=== PATIENT | female | born 1955 | race Caucasian/White ===

== ENCOUNTER 2017-10-24 09:07 | Emergency (ER) | payer MEDICAID, OTHER ==
[~2017-10-24] VITALS: Ht 165.1 cm; Wt 55.0 kg
[~2017-10-24 09:07] MED LIST: AMLO10TA4; ESOM20CA; IMIP50TA7; LANS30CA52; MECL25TA3; METO5TAB86; SERT25TA; XANAX
[2017-10-24] MEDS ORDERED: KETOROLAC 60MG/2ML VIAL IM ONE (10:45)
[2017-10-24] MEDS ORDERED: KETOROLAC 30MG/ML VIAL IV STA (11:54)
[2017-10-24] MEDS ORDERED: DIPHENHYDRAMINE 50MG/ML VIAL IV ONE (12:00)
[2017-10-24] MEDS ORDERED: IPRATROPIUM BROMIDE (0.02%) 0.5MG/2.5ML NEB HHN STA (12:08)
[2017-10-24] MEDS ORDERED: ALBUTEROL (0.083%) 2.5MG/3ML NEB HHN STA (12:08)
[2017-10-24] MEDS ORDERED: PREDNISONE 20MG TABLET PO STA (12:08)
[2017-10-24] MEDS ORDERED: ONDANSETRON 4MG ODT PO ONE (13:00)
[2017-10-24 13:39] VITALS: BP 150/89
== END 2017-10-24 13:42 | disposition home or self-care (01) ==
LOC: ER 09:22
DX: R05 Cough (principal); R07.89 Other chest pain; R06.02 Shortness of breath; R06.2 Wheezing; I10 Essential (primary) hypertension
CPT/HCPCS: 71045; 93005; 94640; 96372; 96374; 99284; J1200; J1885; J7512; J7611; Q0162

== ENCOUNTER 2018-01-14 08:02 | Emergency (ER) | payer MEDICAID ==
[~2018-01-14] VITALS: Ht 165.1 cm; Wt 70.0 kg
[2018-01-14] MEDS ORDERED: MORPHINE SULFATE 4 MG/ML CPJ (NOT FOR IM USE) IV STA (09:14)
[2018-01-14] MEDS ORDERED: SODIUM CHLORIDE 0.9% 1,000 ML IV ONE (09:14)
[2018-01-14] MEDS ORDERED: ONDANSETRON HCL 4MG/2ML VIAL IV STA (09:14)
[2018-01-14 09:40] LABS: BASOPHILS % 0.7 % (0.0-2.0); EOSINOPHILS % 0.9 % (0.0-5.0); HEMATOCRIT. 35.9 % (36.0-48.0); HEMOGLOBIN. 12.2 g/dL (12.0-16.0); LYMPHOCYTES % 19.2 % (20.0-50.0); MEAN CORPUSCULAR HEMOGLOBIN 28.2 pg (28.0-32.0); MEAN CORPUSCULAR VOLUME 82.8 fL (81.0-99.0); MEAN PLATELET VOLUME 8.5 fl (7.4-10.4); MONOCYTES % 3.9 % (2.0-8.0); NEUTROPHILS % 75.3 % (40.0-76.0); PLATELET 259 x1000/uL (130-400); RED BLOOD CELL COUNT 4.34 mill/uL (4.2-5.4); RED CELL DISTRIBUTION WIDTH 15.2 % (11.6-14.6)
[2018-01-14 09:45] LABS: CHLORIDE 104 mEq/L (98-107)
[2018-01-14 09:46] LABS: PROTHROMBIN TIME 10.3 sec (9.4-11.6)
[2018-01-14] MEDS ORDERED: DIPHENHYDRAMINE 50MG/ML VIAL IV ONE (10:00)
[2018-01-14 10:22] LABS: CLARITY URINE CLEAR (CLEAR); COLOR URINE YELLOW (YELLOW); KETONES URINE 1+ (NEGATIVE); LEUKOCYTE ESTERASE URINE 1+ (NEGATIVE); NITRITE URINE NEGATIVE (NEGATIVE); OCCULT BLOOD URINE NEGATIVE (NEGATIVE); PROTEIN URINE NEGATIVE (NEGATIVE); SPECIFIC GRAVITY URINE 1.009 (1.005-1.030); UROBILINOGEN URINE 0.2 E.U./dL (0.2-1.0)
[2018-01-14 12:02] VITALS: BP 162/59
== END 2018-01-14 12:04 | disposition home or self-care (01) ==
LOC: ER 08:29
DX: K44.9 Diaphragmatic hernia without obstruction or gangrene (principal); N13.30 Unspecified hydronephrosis; I10 Essential (primary) hypertension; Z90.710 Acquired absence of both cervix and uterus; Z90.49 Acquired absence of other specified parts of digestive tract; Z90.89 Acquired absence of other organs
CPT/HCPCS: 36415; 74176; 80053; 81003; 83605; 83690; 85025; 85610; 96361; 96374; 96375; 99285; J1200; J2270; J2405; J7030; Z7610

== ENCOUNTER 2019-03-07 05:20 | Emergency (ER) | payer MEDICAID ==
[~2019-03-07] VITALS: Ht 157.5 cm; Wt 55.0 kg
[2019-03-07] MEDS ORDERED: ONDANSETRON HCL 4MG/2ML INJ IV STA (05:34)
[2019-03-07] MEDS ORDERED: MORPHINE SULFATE 4 MG/ML CPJ (NOT FOR IM USE) IV STA (05:34)
[2019-03-07 05:57] LABS: CHLORIDE 99 mEq/L (98-107)
[2019-03-07 06:00] LABS: BASOPHILS % 1.2 % (0.0-2.0); EOSINOPHILS % 5.1 % (0.0-5.0); HEMATOCRIT. 33.8 % (36.0-48.0); HEMOGLOBIN. 11.3 g/dL (12.0-16.0); LYMPHOCYTES % 44.1 % (20.0-50.0); MEAN CORPUSCULAR HEMOGLOBIN 28.2 pg (28.0-32.0); MEAN CORPUSCULAR VOLUME 84.6 fL (81.0-99.0); MEAN PLATELET VOLUME 8.6 fl (7.4-10.4); MONOCYTES % 8.1 % (2.0-8.0); NEUTROPHILS % 41.5 % (40.0-76.0); PLATELET 185 x1000/uL (130-400); RED BLOOD CELL COUNT 3.99 mill/uL (4.2-5.4); RED CELL DISTRIBUTION WIDTH 16.7 % (11.6-14.6)
[2019-03-07 06:06] LABS: PROTHROMBIN TIME 9.8 sec (9.6-11.0)
[2019-03-07] MEDS ORDERED: DIPHENHYDRAMINE 50MG/ML VIAL IV ONE (06:45)
[2019-03-07 07:15] LABS: CLARITY URINE CLOUDY (CLEAR); COLOR URINE YELLOW (YELLOW); KETONES URINE NEGATIVE (NEGATIVE); LEUKOCYTE ESTERASE URINE TRACE (NEGATIVE); NITRITE URINE NEGATIVE (NEGATIVE); OCCULT BLOOD URINE NEGATIVE (NEGATIVE); PROTEIN URINE NEGATIVE (NEGATIVE); UROBILINOGEN URINE 0.2 E.U./dL (0.2-1.0)
[2019-03-07] MEDS ORDERED: VISCOUS LIDOCAINE 2% 15 ML UDC PO STA (07:35)
[2019-03-07] MEDS ORDERED: MAGNESIUM/ALUMINUM HYDROXIDE/SIMETHICONE 30ML UDC PO STA (07:35)
[2019-03-07] MEDS ORDERED: DICYCLOMINE 10 MG/5 ML ORAL SYR PO STA (07:35)
[2019-03-07 08:56] VITALS: BP 149/74
== END 2019-03-07 08:58 | disposition home or self-care (01) ==
LOC: ER 05:20
DX: K80.20 Calculus of gallbladder without cholecystitis without obstruction (principal); I10 Essential (primary) hypertension; K44.9 Diaphragmatic hernia without obstruction or gangrene; Z90.49 Acquired absence of other specified parts of digestive tract; Z90.89 Acquired absence of other organs; Z88.8 Allergy status to other drugs, medicaments and biological substances; Z87.19 Personal history of other diseases of the digestive system
CPT/HCPCS: 36415; 71045; 74176; 80053; 81003; 83690; 84484; 85025; 85610; 93005; 96374; 96375; 99284; J1200; J2270; J2405; Z7610

== ENCOUNTER 2019-04-01 08:38 | Emergency (ER) | payer MEDICAID ==
[~2019-04-01] VITALS: Ht 162.6 cm; Wt 68.0 kg
[2019-04-01] MEDS ORDERED: KETOROLAC 30MG/ML VIAL IV STA (09:35)
[2019-04-01] MEDS ORDERED: ONDANSETRON HCL 4MG/2ML INJ IV STA (09:35)
[2019-04-01 10:02] LABS: BASOPHILS % 1.2 % (0.0-2.0); EOSINOPHILS % 5.5 % (0.0-5.0); HEMATOCRIT. 33.2 % (36.0-48.0); HEMOGLOBIN. 10.9 g/dL (12.0-16.0); MEAN CORPUSCULAR HEMOGLOBIN 28.2 pg (28.0-32.0); MEAN CORPUSCULAR VOLUME 86.1 fL (81.0-99.0); MEAN PLATELET VOLUME 8.2 fl (7.4-10.4); MONOCYTES % 8.3 % (2.0-8.0); PLATELET 206 x1000/uL (130-400); RED BLOOD CELL COUNT 3.85 mill/uL (4.2-5.4); RED CELL DISTRIBUTION WIDTH 16.5 % (11.6-14.6)
[2019-04-01 10:08] LABS: CHLORIDE 101 mEq/L (98-107)
[2019-04-01 10:09] LABS: INR 0.9; PROTHROMBIN TIME 9.4 sec (9.6-11.0)
[2019-04-01] MEDS ORDERED: DIPHENHYDRAMINE 50MG/ML VIAL IV ONE (10:30)
[2019-04-01 12:15] VITALS: BP 118/80
== END 2019-04-01 12:45 | disposition home or self-care (01) ==
LOC: ER 08:38
DX: R10.9 Unspecified abdominal pain (principal); R11.10 Vomiting, unspecified; R19.7 Diarrhea, unspecified; I10 Essential (primary) hypertension; Z90.49 Acquired absence of other specified parts of digestive tract; Z90.89 Acquired absence of other organs; Z90.710 Acquired absence of both cervix and uterus; Z98.890 Other specified postprocedural states
CPT/HCPCS: 36415; 74176; 80053; 83690; 85025; 85610; 93005; 96374; 96375; 99284; J1200; J1885; J2405

== ENCOUNTER 2019-08-20 18:23 | Emergency (ER) | payer MEDICAID ==
[~2019-08-20] VITALS: Ht 165.1 cm; Wt 60.0 kg
[2019-08-20] MEDS ORDERED: MAGNESIUM/ALUMINUM HYDROXIDE/SIMETHICONE 30ML UDC PO STA (18:48)
[2019-08-20] MEDS ORDERED: METOCLOPRAMIDE HCL 10MG/2ML VIAL IV STA (18:48)
[2019-08-20] MEDS ORDERED: FAMOTIDINE 20MG/2ML VIAL IV STA (18:48)
[2019-08-20] MEDS ORDERED: VISCOUS LIDOCAINE 2% 15 ML UDC PO STA (18:48)
[2019-08-20 19:11] LABS: BASOPHILS % 1.1 % (0.0-2.0); EOSINOPHILS % 4.6 % (0.0-5.0); HEMATOCRIT. 31.9 % (36.0-48.0); HEMOGLOBIN. 10.6 g/dL (12.0-16.0); MEAN CORPUSCULAR HEMOGLOBIN 28.9 pg (28.0-32.0); MEAN CORPUSCULAR VOLUME 86.4 fL (81.0-99.0); MONOCYTES % 5.6 % (2.0-8.0); NEUTROPHILS % 52.7 % (40.0-76.0); PLATELET 229 x1000/uL (130-400); RED BLOOD CELL COUNT 3.69 mill/uL (4.2-5.4); RED CELL DISTRIBUTION WIDTH 14.7 % (11.6-14.6)
[2019-08-20 19:18] LABS: CHLORIDE 108 mEq/L (98-107)
[2019-08-20 20:49] LABS: CLARITY URINE CLOUDY (CLEAR); COLOR URINE YELLOW (YELLOW); KETONES URINE NEGATIVE (NEGATIVE); LEUKOCYTE ESTERASE URINE 3+ (NEGATIVE); NITRITE URINE NEGATIVE (NEGATIVE); OCCULT BLOOD URINE NEGATIVE (NEGATIVE); PROTEIN URINE NEGATIVE (NEGATIVE); SPECIFIC GRAVITY URINE 1.009 (1.005-1.030); UROBILINOGEN URINE 0.2 E.U./dL (0.2-1.0)
[2019-08-20] MEDS ORDERED: GABAPENTIN 300MG CAPSULE PO ONE (21:00)
[2019-08-20] MEDS ORDERED: CEFTRIAXONE 1 G PREMIX 50 ML IV ONE (21:30)
[2019-08-20] MEDS ORDERED: DIPHENHYDRAMINE 50MG/ML VIAL IV ONE (21:45)
[2019-08-21 00:47] VITALS: BP 118/75
== END 2019-08-21 01:51 | disposition home or self-care (01) ==
LOC: ER 18:23
DX: K29.70 Gastritis, unspecified, without bleeding (principal); K21.9 Gastro-esophageal reflux disease without esophagitis; N39.0 Urinary tract infection, site not specified; I10 Essential (primary) hypertension; Z90.710 Acquired absence of both cervix and uterus; Z90.49 Acquired absence of other specified parts of digestive tract
CPT/HCPCS: 36415; 71045; 80053; 81003; 83690; 83880; 84484; 85025; 85610; 93005; 96365; 96375; 99284; J0696; J1200; J2765; J3490

== ENCOUNTER 2019-12-12 12:05 | Emergency (ER) | payer MEDICAID ==
[~2019-12-12] VITALS: Ht 165.1 cm; Wt 73.0 kg
[~2019-12-12 12:05] MED LIST changes: +CLON-457 MT; +PROT20 MT
[2019-12-12] MEDS ORDERED: FAMOTIDINE 20MG/2ML VIAL IV STA (12:21)
[2019-12-12] MEDS ORDERED: ONDANSETRON HCL 4MG/2ML INJ IV STA (12:21)
[2019-12-12] MEDS ORDERED: MORPHINE SULFATE 4 MG/ML CPJ (NOT FOR IM USE) IV ONE (12:30)
[2019-12-12] MEDS ORDERED: DIPHENHYDRAMINE 50MG/ML VIAL IV ONE (12:30)
[2019-12-12 12:49] LABS: BASOPHILS % 1.8 % (0.0-2.0); EOSINOPHILS % 5.1 % (0.0-5.0); HEMATOCRIT. 28.8 % (36.0-48.0); HEMOGLOBIN. 9.3 g/dL (12.0-16.0); MEAN CORPUSCULAR VOLUME 83.2 fL (81.0-99.0); MEAN PLATELET VOLUME 9.2 fl (7.4-10.4); MONOCYTES % 7.5 % (2.0-8.0); NEUTROPHILS % 44.6 % (40.0-76.0); PLATELET 202 x1000/uL (130-400); RED BLOOD CELL COUNT 3.46 mill/uL (4.2-5.4); RED CELL DISTRIBUTION WIDTH 15.3 % (11.6-14.6)
[2019-12-12 12:53] LABS: CHLORIDE 105 mEq/L (98-107)
[2019-12-12 12:55] LABS: INR 0.9; PROTHROMBIN TIME 10.3 sec (9.6-11.0)
[2019-12-12 14:15] VITALS: BP 166/84
== END 2019-12-12 14:16 | disposition home or self-care (01) ==
LOC: ER 12:05
DX: R10.13 Epigastric pain (principal); I10 Essential (primary) hypertension; Z87.19 Personal history of other diseases of the digestive system; Z90.49 Acquired absence of other specified parts of digestive tract; Z90.710 Acquired absence of both cervix and uterus; Z88.6 Allergy status to analgesic agent; Z88.8 Allergy status to other drugs, medicaments and biological substances
CPT/HCPCS: 36415; 80053; 83690; 85025; 85610; 96374; 96375; 99284; J1200; J2270; J2405; J3490

== ENCOUNTER 2020-01-07 11:38 | Emergency (ER) | payer MEDICAID ==
[~2020-01-07] VITALS: Ht 162.6 cm; Wt 53.0 kg
[~2020-01-07 11:38] MED LIST changes: +FERR325T6 MT
[2020-01-07] MEDS ORDERED: MAGNESIUM/ALUMINUM HYDROXIDE/SIMETHICONE 30ML UDC PO STA (12:35)
[2020-01-07] MEDS ORDERED: VISCOUS LIDOCAINE 2% 15 ML UDC PO STA (12:35)
[2020-01-07] MEDS ORDERED: DIPHENHYDRAMINE 50MG/ML VIAL IM ONE (13:15)
[2020-01-07] MEDS ORDERED: METOCLOPRAMIDE HCL 10MG/2ML VIAL IM ONE (13:15)
[2020-01-07] MEDS ORDERED: MORPHINE SULFATE 10 MG/ML CPJ IM ONE (13:30)
[2020-01-07 14:21] VITALS: BP 144/85
[2020-01-07] MEDS ORDERED: SODIUM CHLORIDE 0.9% 1,000 ML IV ONE (14:42)
[2020-01-07 14:47] LABS: BASOPHILS % 1.9 % (0.0-2.0); EOSINOPHILS % 6.3 % (0.0-5.0); HEMATOCRIT. 29.1 % (36.0-48.0); HEMOGLOBIN. 9.5 g/dL (12.0-16.0); LYMPHOCYTES % 52.6 % (20.0-50.0); MEAN CORPUSCULAR HEMOGLOBIN 26.4 pg (28.0-32.0); MEAN CORPUSCULAR VOLUME 80.5 fL (81.0-99.0); MEAN PLATELET VOLUME 9.7 fl (7.4-10.4); MONOCYTES % 7.9 % (2.0-8.0); NEUTROPHILS % 31.3 % (40.0-76.0); PLATELET 186 x1000/uL (130-400); RED BLOOD CELL COUNT 3.61 mill/uL (4.2-5.4); RED CELL DISTRIBUTION WIDTH 15.7 % (11.6-14.6)
[2020-01-07 14:54] LABS: CHLORIDE 107 mEq/L (98-107)
[2020-01-07 15:36] LABS: INR 0.9
[2020-01-07] MEDS ORDERED: DIPHENHYDRAMINE 25MG CAPSULE PO ONE (15:45)
[2020-01-07] MEDS ORDERED: SODIUM CHLORIDE 0.9% 1,000 ML IV SCH (18:46)
[2020-01-07] MEDS ORDERED: ACETAMINOPHEN 325MG TABLET PO PRN (19:00)
[2020-01-07] MEDS ORDERED: ONDANSETRON HCL 4MG/2ML INJ IV PRN (19:00)
[2020-01-07] MEDS ORDERED: PANTOPRAZOLE SODIUM 40 MG/VIAL IV SCH (19:00)
[2020-01-07] MEDS ORDERED: MORPHINE SULFATE 2 MG/ML CPJ (NOT FOR IM USE) IV PRN (19:00)
[2020-01-07] MEDS ORDERED: IPRATROPIUM/ALBUTEROL 0.5-3(2.5)MG/3ML NEB HHN PRN (19:00)
[2020-01-07] MEDS ORDERED: AMLODIPINE 5MG TABLET PO SCH (19:00)
[2020-01-07] MEDS ORDERED: CLONIDINE 0.1MG TABLET PO PRN (19:00)
[2020-01-07] MEDS ORDERED: HYDROCODONE/ACETAMINOPHEN 5/325MG TABLET PO PRN (19:00)
[2020-01-07] MEDS ORDERED: LORAZEPAM 0.5MG TABLET PO PRN (19:00)
[2020-01-08] MEDS ORDERED: FERROUS SULFATE 325MG TABLET PO SCH (09:00)
[2020-01-08] MEDS ORDERED: SERTRALINE HCL 25MG TABLET PO SCH (09:00)
== END 2020-01-07 16:10 | disposition left against medical advice (07) ==
LOC: ER 11:38 → EDBEDREQ 15:56 → EDBEDREQTM 15:56 → ENRESERV 16:07 → CANRESERV 16:07 → CANBEDREQ 16:10 → ER 16:10
DX: R10.13 Epigastric pain (principal); K44.9 Diaphragmatic hernia without obstruction or gangrene; I10 Essential (primary) hypertension; D50.9 Iron deficiency anemia, unspecified; R11.2 Nausea with vomiting, unspecified; F99 Mental disorder, not otherwise specified; Z91.013 Allergy to seafood; Z88.6 Allergy status to analgesic agent; Z91.041 Radiographic dye allergy status; Z88.5 Allergy status to narcotic agent; Z87.19 Personal history of other diseases of the digestive system
CPT/HCPCS: 36415; 71045; 80053; 80320; 83690; 83880; 85025; 85610; 93005; 96372; 99285; J1200; J2270; J2765; J7030; Q0163; G0480

== ENCOUNTER 2020-01-13 04:58 | Emergency (ER) | payer MEDICAID ==
[~2020-01-13] VITALS: Ht 165.1 cm; Wt 64.0 kg
[2020-01-13] MEDS ORDERED: ONDANSETRON HCL 4MG/2ML INJ IV STA (06:29)
[2020-01-13] MEDS ORDERED: MORPHINE SULFATE 4 MG/ML CPJ (NOT FOR IM USE) IV STA (06:29)
[2020-01-13] MEDS ORDERED: SODIUM CHLORIDE 0.9% 1,000 ML IV ONE (06:29)
[2020-01-13] MEDS ORDERED: FAMOTIDINE 20MG/2ML VIAL IV STA (06:29)
[2020-01-13 06:36] LABS: BASOPHILS % 1.4 % (0.0-2.0); EOSINOPHILS % 6.7 % (0.0-5.0); HEMATOCRIT. 29.1 % (36.0-48.0); HEMOGLOBIN. 9.4 g/dL (12.0-16.0); LYMPHOCYTES % 36.9 % (20.0-50.0); MEAN CORPUSCULAR HEMOGLOBIN 26.2 pg (28.0-32.0); MEAN CORPUSCULAR VOLUME 81.1 fL (81.0-99.0); MEAN PLATELET VOLUME 9.5 fl (7.4-10.4); MONOCYTES % 9.3 % (2.0-8.0); NEUTROPHILS % 45.7 % (40.0-76.0); PLATELET 190 x1000/uL (130-400); RED BLOOD CELL COUNT 3.58 mill/uL (4.2-5.4); RED CELL DISTRIBUTION WIDTH 15.9 % (11.6-14.6)
[2020-01-13 06:46] LABS: INR 0.9
[2020-01-13 06:48] LABS: CHLORIDE 106 mEq/L (98-107)
[2020-01-13 07:42] LABS: CLARITY URINE CLEAR (CLEAR); COLOR URINE YELLOW (YELLOW); KETONES URINE NEGATIVE (NEGATIVE); LEUKOCYTE ESTERASE URINE 1+ (NEGATIVE); NITRITE URINE NEGATIVE (NEGATIVE); OCCULT BLOOD URINE NEGATIVE (NEGATIVE); PH URINE 8.5 (4.5-8.0); PROTEIN URINE NEGATIVE (NEGATIVE); SPECIFIC GRAVITY URINE 1.004 (1.005-1.030); UROBILINOGEN URINE 0.2 E.U./dL (0.2-1.0)
[2020-01-13 08:31] LABS: *AMPHETAMINES SCREEN URINE NEGATIVE (NEGATIVE); *BARBITURATES SCREEN URINE NEGATIVE (NEGATIVE); *BENZODIAZEPINES SCREEN URINE PRESUMTIVE POSITIVE (NEGATIVE)
[2020-01-13 08:32] LABS: *COCAINE SCREEN URINE NEGATIVE (NEGATIVE); CANNABINOID URINE SCREEN PRESUMTIVE POSITIVE (NEGATIVE); METHADONE URINE SCREEN NEGATIVE (NEGATIVE); OPIATES URINE SCREEN NEGATIVE (NEGATIVE); PHENCYCLIDINE URINE SCREEN NEGATIVE (NEGATIVE)
[2020-01-13 08:46] VITALS: BP 132/80
== END 2020-01-13 09:20 | disposition home or self-care (01) ==
LOC: ER 04:58
DX: N39.0 Urinary tract infection, site not specified (principal); R11.10 Vomiting, unspecified; D64.9 Anemia, unspecified; I10 Essential (primary) hypertension; Z91.041 Radiographic dye allergy status; Z88.6 Allergy status to analgesic agent; Z91.013 Allergy to seafood; Z88.1 Allergy status to other antibiotic agents; Z79.899 Other long term (current) drug therapy; Z98.890 Other specified postprocedural states
CPT/HCPCS: 36415; 80053; 80305; 80320; 81003; 83690; 84484; 85025; 85610; 93005; 96361; 96374; 96375; 99284; J2270; J2405; J3490; J7030; G0480

== ENCOUNTER 2020-02-05 22:13 | Emergency (ER) | payer MEDICAID ==
[~2020-02-05] VITALS: Ht 167.6 cm; Wt 63.0 kg
[2020-02-05] MEDS ORDERED: VISCOUS LIDOCAINE 2% 15 ML UDC PO STA (23:13)
[2020-02-05] MEDS ORDERED: MAGNESIUM/ALUMINUM HYDROXIDE/SIMETHICONE 30ML UDC PO STA (23:13)
[2020-02-05] MEDS ORDERED: ONDANSETRON HCL 4MG/2ML INJ IV STA (23:13)
[2020-02-05 23:33] LABS: BASOPHILS % 1.7 % (0.0-2.0); HEMATOCRIT. 29.5 % (36.0-48.0); HEMOGLOBIN. 9.7 g/dL (12.0-16.0); LYMPHOCYTES % 40.3 % (20.0-50.0); MEAN CORPUSCULAR HEMOGLOBIN 25.9 pg (28.0-32.0); MEAN CORPUSCULAR VOLUME 78.6 fL (81.0-99.0); MEAN PLATELET VOLUME 9.5 fl (7.4-10.4); MONOCYTES % 8.2 % (2.0-8.0); NEUTROPHILS % 44.8 % (40.0-76.0); PLATELET 194 x1000/uL (130-400); RED BLOOD CELL COUNT 3.75 mill/uL (4.2-5.4); RED CELL DISTRIBUTION WIDTH 16.3 % (11.6-14.6)
[2020-02-05 23:36] VITALS: BP 105/61
[2020-02-05 23:41] LABS: INR 0.9; PROTHROMBIN TIME 9.7 sec (9.6-11.0)
[2020-02-05 23:43] LABS: CHLORIDE 109 mEq/L (98-107)
[2020-02-05 23:51] LABS: ETHANOL BLOOD < 10 mg/dL
[2020-02-06] MEDS ORDERED: ACETAMINOPHEN 500MG TABLET PO ONE (00:45)
== END 2020-02-06 01:35 | disposition home or self-care (01) ==
LOC: ER 22:13
DX: R10.13 Epigastric pain (principal); G89.29 Other chronic pain; K80.80 Other cholelithiasis without obstruction; K44.9 Diaphragmatic hernia without obstruction or gangrene; I10 Essential (primary) hypertension; Z76.5 Malingerer [conscious simulation]; Z87.19 Personal history of other diseases of the digestive system; Z88.8 Allergy status to other drugs, medicaments and biological substances; Z91.041 Radiographic dye allergy status; Z91.013 Allergy to seafood
CPT/HCPCS: 36415; 74176; 76705; 80053; 80320; 83690; 84484; 85025; 85610; 96374; 99285; J2405; G0480

== ENCOUNTER 2020-04-02 09:41 | Emergency (ER) | payer MEDICAID ==
[~2020-04-02] VITALS: Ht 165.1 cm; Wt 68.0 kg
[2020-04-02] MEDS ORDERED: ONDANSETRON HCL 4MG/2ML INJ IV STA (10:06)
[2020-04-02] MEDS ORDERED: SODIUM CHLORIDE 0.9% 1,000 ML IV ONE (10:06)
[2020-04-02] MEDS ORDERED: FAMOTIDINE 20MG/2ML VIAL IV STA (10:06)
[2020-04-02] MEDS ORDERED: DIPHENHYDRAMINE 50MG/ML VIAL IV ONE ×2 (10:15→11:45)
[2020-04-02] MEDS ORDERED: METHYLPREDNISOLONE SOD SUCC 125 MG/2 ML VIAL IV ONE (10:15)
[2020-04-02 12:45] LABS: *AMPHETAMINES SCREEN URINE NEGATIVE (NEGATIVE); *BARBITURATES SCREEN URINE NEGATIVE (NEGATIVE); *BENZODIAZEPINES SCREEN URINE PRESUMTIVE POSITIVE (NEGATIVE); *COCAINE SCREEN URINE NEGATIVE (NEGATIVE); METHADONE URINE SCREEN NEGATIVE (NEGATIVE); OPIATES URINE SCREEN NEGATIVE (NEGATIVE)
[2020-04-02 12:46] LABS: CANNABINOID URINE SCREEN PRESUMTIVE POSITIVE (NEGATIVE); PHENCYCLIDINE URINE SCREEN NEGATIVE (NEGATIVE)
[2020-04-02 12:58] VITALS: BP 136/87
== END 2020-04-02 13:09 | disposition home or self-care (01) ==
LOC: ER 09:41
DX: T78.1XXA Other adverse food reactions, not elsewhere classified, initial encounter (principal); T78.49XA Other allergy, initial encounter; F12.10 Cannabis abuse, uncomplicated; F13.10 Sedative, hypnotic or anxiolytic abuse, uncomplicated; Z88.8 Allergy status to other drugs, medicaments and biological substances; Z91.041 Radiographic dye allergy status; Z91.013 Allergy to seafood; Z90.49 Acquired absence of other specified parts of digestive tract; X58.XXXA Exposure to other specified factors, initial encounter
CPT/HCPCS: 80305; 96361; 96374; 96375; 96376; 99284; J1200; J2405; J2930; J3490; J7030

== ENCOUNTER 2020-06-07 04:31 | Emergency (ER) | payer MEDICAID ==
[~2020-06-07] VITALS: Ht 162.6 cm; Wt 64.0 kg
[2020-06-07] MEDS ORDERED: SODIUM CHLORIDE 0.9% 1,000 ML IV ONE (05:09)
[2020-06-07] MEDS ORDERED: ONDANSETRON HCL 4MG/2ML INJ IV STA (05:09)
[2020-06-07] MEDS ORDERED: FAMOTIDINE 20MG/2ML VIAL IV STA (05:09)
[2020-06-07] MEDS ORDERED: HYDROXYZINE 25MG TABLET PO ONE (05:15)
[2020-06-07 05:19] LABS: BASOPHILS % 3.2 % (0.0-2.0); HEMATOCRIT. 32.2 % (36.0-48.0); HEMOGLOBIN. 10.4 g/dL (12.0-16.0); LYMPHOCYTES % 47.3 % (20.0-50.0); MEAN CORPUSCULAR VOLUME 80.3 fL (81.0-99.0); MEAN PLATELET VOLUME 9.2 fl (7.4-10.4); MONOCYTES % 6.8 % (2.0-8.0); NEUTROPHILS % 34.7 % (40.0-76.0); PLATELET 227 x1000/uL (130-400); RED CELL DISTRIBUTION WIDTH 17.1 % (11.6-14.6)
[2020-06-07 05:22] LABS: CHLORIDE 107 mEq/L (98-107)
[2020-06-07 06:06] VITALS: BP 123/54
== END 2020-06-07 06:10 | disposition home or self-care (01) ==
LOC: ER 04:31
DX: T61.781A Other shellfish poisoning, accidental (unintentional), initial encounter (principal); Y92.9 Unspecified place or not applicable; R11.2 Nausea with vomiting, unspecified; R19.7 Diarrhea, unspecified; I51.9 Heart disease, unspecified; Z88.6 Allergy status to analgesic agent; Z91.013 Allergy to seafood; Z91.041 Radiographic dye allergy status
CPT/HCPCS: 36415; 80053; 83690; 85025; 93005; 96361; 96374; 96375; 99284; J2405; J3490; J7030

== ENCOUNTER 2020-10-05 15:54 | Emergency (ER) | payer MEDICAID ==
[~2020-10-05] VITALS: Ht 162.6 cm; Wt 60.0 kg
[2020-10-05] MEDS ORDERED: HYDROCODONE/ACETAMINOPHEN 5/325MG TABLET PO PRN (17:30)
[2020-10-05 17:57] LABS: BASOPHILS % 1.6 % (0.0-2.0); EOSINOPHILS % 5.1 % (0.0-5.0); HEMATOCRIT. 26.8 % (36.0-48.0); HEMOGLOBIN. 8.8 g/dL (12.0-16.0); LYMPHOCYTES % 47.4 % (20.0-50.0); MEAN CORPUSCULAR HEMOGLOBIN 25.9 pg (28.0-32.0); MEAN CORPUSCULAR VOLUME 78.9 fL (81.0-99.0); MEAN PLATELET VOLUME 8.3 fl (7.4-10.4); MONOCYTES % 7.6 % (2.0-8.0); NEUTROPHILS % 38.3 % (40.0-76.0); PLATELET 209 x1000/uL (130-400); RED CELL DISTRIBUTION WIDTH 16.9 % (11.6-14.6)
[2020-10-05 18:05] LABS: CHLORIDE 91 mEq/L (98-107)
[2020-10-05 18:33] LABS: CLARITY URINE CLOUDY (CLEAR); COLOR URINE YELLOW (YELLOW); KETONES URINE NEGATIVE (NEGATIVE); LEUKOCYTE ESTERASE URINE 3+ (NEGATIVE); NITRITE URINE NEGATIVE (NEGATIVE); OCCULT BLOOD URINE NEGATIVE (NEGATIVE); PROTEIN URINE NEGATIVE (NEGATIVE); UROBILINOGEN URINE 0.2 E.U./dL (0.2-1.0)
[2020-10-05] MEDS ORDERED: HYDROCODONE/ACETAMINOPHEN 5/325MG TABLET PO ONE (21:00)
[2020-10-05 22:18] VITALS: BP 125/81
== END 2020-10-05 22:21 | disposition home or self-care (01) ==
LOC: ER 15:54
DX: E87.1 Hypo-osmolality and hyponatremia (principal); M79.601 Pain in right arm; Z91.041 Radiographic dye allergy status; Z79.899 Other long term (current) drug therapy; Z88.6 Allergy status to analgesic agent; Z91.013 Allergy to seafood; Z98.890 Other specified postprocedural states
CPT/HCPCS: 36415; 71045; 73030; 73060; 76881; 80048; 80076; 81003; 84484; 85025; 99284

== ENCOUNTER 2020-11-18 09:18 | Emergency (ER) | payer MEDICAID ==
[~2020-11-18] VITALS: Ht 157.5 cm; Wt 58.0 kg
[2020-11-18] MEDS ORDERED: ONDANSETRON HCL 4MG/2ML INJ IM STA (10:10)
[2020-11-18] MEDS ORDERED: HYDROCODONE/ACETAMINOPHEN 5/325MG TABLET PO STA ×2 (10:10→11:39)
[2020-11-18 10:50] VITALS: BP 136/66
[2020-11-18 11:00] LABS: BASOPHILS % 2.3 % (0.0-2.0); EOSINOPHILS % 6.6 % (0.0-5.0); HEMATOCRIT. 28.2 % (36.0-48.0); HEMOGLOBIN. 9.3 g/dL (12.0-16.0); LYMPHOCYTES % 56.4 % (20.0-50.0); MEAN CORPUSCULAR HEMOGLOBIN 25.5 pg (28.0-32.0); MEAN CORPUSCULAR VOLUME 77.7 fL (81.0-99.0); MEAN PLATELET VOLUME 8.7 fl (7.4-10.4); MONOCYTES % 7.1 % (2.0-8.0); NEUTROPHILS % 27.6 % (40.0-76.0); PLATELET 218 x1000/uL (130-400); RED BLOOD CELL COUNT 3.63 mill/uL (4.2-5.4); RED CELL DISTRIBUTION WIDTH 15.9 % (11.6-14.6)
[2020-11-18 11:04] LABS: CHLORIDE 101 mEq/L (98-107)
[2020-11-18] MEDS ORDERED: HYDR-4346 PO ×2 (12:52→13:14)
[2020-11-18] MEDS ORDERED: ONDA4TAB5 PO ×2 (13:01→13:14)
[2020-11-19] MEDS ORDERED: HYDR-4346 PO (10:44)
[2020-11-19] MEDS ORDERED: ONDA4TAB5 PO (10:44)
== END 2020-11-18 13:35 | disposition home or self-care (01) ==
LOC: ER 09:24
DX: R22.31 Localized swelling, mass and lump, right upper limb (principal); M79.601 Pain in right arm; D64.9 Anemia, unspecified; Z79.899 Other long term (current) drug therapy
CPT/HCPCS: 36415; 80048; 82962; 85025; 96372; 99283; J2405

== ENCOUNTER 2020-11-19 10:08 | Emergency (ER) | payer MEDICAID, OTHER ==
[~2020-11-19] VITALS: Ht 162.6 cm; Wt 63.6 kg
[~2020-11-19 10:08] MED LIST changes: +HYDR-4346 PO; +ONDA4TAB5 PO
[2020-11-19] MEDS ORDERED: ONDA4TAB5 PO (10:44)
[2020-11-19] MEDS ORDERED: HYDR-4346 PO (10:44)
[2020-11-19] MEDS ORDERED: ONDANSETRON 4MG ODT PO ONE (10:45)
[2020-11-19] MEDS ORDERED: HYDROCODONE/ACETAMINOPHEN 5/325MG TABLET PO ONE (10:45)
[2020-11-19 11:08] VITALS: BP 112/78
== END 2020-11-19 11:08 | disposition home or self-care (01) ==
LOC: ER 10:08
DX: R22.31 Localized swelling, mass and lump, right upper limb (principal); I10 Essential (primary) hypertension
CPT/HCPCS: 99283; Q0162

== ENCOUNTER 2020-11-22 15:21 | Emergency (ER) | payer OTHER ==
[~2020-11-22] VITALS: Ht 162.6 cm; Wt 65.0 kg
[2020-11-22 16:30] VITALS: BP 135/71
[2020-11-22] MEDS ORDERED: ONDANSETRON 4MG ODT PO ONE (16:30)
[2020-11-22] MEDS ORDERED: HYDROCODONE/APAP 7.5/325MG 1 TAB TABLET PO ONE (16:30)
== END 2020-11-22 18:34 | disposition home or self-care (01) ==
LOC: ER 15:21
DX: M79.601 Pain in right arm (principal); I10 Essential (primary) hypertension
CPT/HCPCS: 73060; 99283; Q0162; Z7610

== ENCOUNTER 2021-02-10 10:06 | Emergency (ER) | payer MEDICAID, OTHER ==
[~2021-02-10] VITALS: Ht 165.1 cm; Wt 66.0 kg
[2021-02-10] MEDS ORDERED: ACETAMINOPHEN 325MG TABLET PO ONE (10:30)
[2021-02-10] MEDS ORDERED: TRAMADOL 50MG TABLET PO ONE (10:30)
[2021-02-10 11:23] LABS: BASOPHILS % 0.3 % (0.0-2.0); EOSINOPHILS % 6.2 % (0.0-5.0); HEMATOCRIT. 30.6 % (36.0-48.0); HEMOGLOBIN. 9.7 g/dL (12.0-16.0); LYMPHOCYTES % 49.8 % (20.0-50.0); MEAN CORPUSCULAR HEMOGLOBIN 25.4 pg (28.0-32.0); MEAN PLATELET VOLUME 8.8 fl (7.4-10.4); NEUTROPHILS % 34.7 % (40.0-76.0); PLATELET 215 x1000/uL (130-400); RED BLOOD CELL COUNT 3.83 mill/uL (4.2-5.4); RED CELL DISTRIBUTION WIDTH 17.7 % (11.6-14.6)
[2021-02-10 11:27] LABS: CHLORIDE 100 mEq/L (98-107)
[2021-02-10 11:40] LABS: CREATINE KINASE 89 IU/L (26-192)
[2021-02-10] MEDS ORDERED: ONDANSETRON 4MG ODT PO ONE (11:45)
[2021-02-10 13:08] VITALS: BP 138/88
== END 2021-02-10 13:09 | disposition home or self-care (01) ==
LOC: ER 10:06
DX: M79.605 Pain in left leg (principal); M79.604 Pain in right leg; I10 Essential (primary) hypertension; Z79.899 Other long term (current) drug therapy
CPT/HCPCS: 36415; 80048; 82550; 85025; 99284; Q0162

== ENCOUNTER 2021-05-06 13:51 | Emergency (ER) | payer OTHER ==
[~2021-05-06] VITALS: Ht 162.6 cm; Wt 62.0 kg
[2021-05-06] MEDS ORDERED: MORPHINE SULFATE 4 MG/ML CPJ (NOT FOR IM USE) IV STA (15:12)
[2021-05-06] MEDS ORDERED: VISCOUS LIDOCAINE 2% 15 ML UDC PO STA (15:12)
[2021-05-06] MEDS ORDERED: MAGNESIUM/ALUMINUM HYDROXIDE/SIMETHICONE 30ML UDC PO STA (15:12)
[2021-05-06] MEDS ORDERED: PANTOPRAZOLE SODIUM 40 MG/VIAL IV STA (15:12)
[2021-05-06] MEDS ORDERED: ONDANSETRON HCL 4MG/2ML INJ IV ONE (15:15)
[2021-05-06] MEDS ORDERED: SODIUM CHLORIDE 0.9% 1,000 ML IV ONE (15:15)
[2021-05-06 15:46] LABS: EOSINOPHILS % 5.2 % (0.0-5.0); HEMOGLOBIN. 8.3 g/dL (12.0-16.0); LYMPHOCYTES % 34.3 % (20.0-50.0); MEAN CORPUSCULAR HEMOGLOBIN 24.7 pg (28.0-32.0); MEAN CORPUSCULAR VOLUME 74.6 fL (81.0-99.0); MEAN PLATELET VOLUME 9.2 fl (7.4-10.4); NEUTROPHILS % 50.5 % (40.0-76.0); PLATELET 202 x1000/uL (130-400); RED BLOOD CELL COUNT 3.35 mill/uL (4.2-5.4); RED CELL DISTRIBUTION WIDTH 17.6 % (11.6-14.6)
[2021-05-06 15:53] LABS: PROTHROMBIN TIME 10.5 sec (9.6-11.0)
[2021-05-06 15:54] LABS: CHLORIDE 106 mEq/L (98-107)
[2021-05-06 15:58] LABS: ETHANOL BLOOD < 10 mg/dL
[2021-05-06] MEDS ORDERED: DIPHENHYDRAMINE 25MG CAPSULE PO NR (16:00)
[2021-05-06] MEDS ORDERED: DIPHENHYDRAMINE 25MG CAPSULE PO ONE (16:00)
[2021-05-06 16:27] VITALS: BP 127/80
== END 2021-05-06 16:29 | disposition left against medical advice (07) ==
LOC: ER 13:51
DX: R10.13 Epigastric pain (principal); Z88.5 Allergy status to narcotic agent; K21.9 Gastro-esophageal reflux disease without esophagitis; I10 Essential (primary) hypertension; Z87.19 Personal history of other diseases of the digestive system; Z90.49 Acquired absence of other specified parts of digestive tract; Z90.710 Acquired absence of both cervix and uterus
CPT/HCPCS: 36415; 80053; 80320; 83690; 85025; 85610; 93005; 96361; 96374; 96375; 99284; C9113; J2270; J2405; J7030; G0480

== ENCOUNTER 2021-06-13 23:34 | Emergency (ER) | payer MEDICARE, OTHER ==
[~2021-06-13] VITALS: Ht 160 cm; Wt 61.0 kg
[2021-06-14] MEDS ORDERED: ONDANSETRON HCL 4MG/2ML INJ IV STA (02:30)
[2021-06-14] MEDS ORDERED: HYDROCODONE/ACETAMINOPHEN 5/325MG TABLET PO STA (02:30)
[2021-06-14] MEDS ORDERED: SODIUM CHLORIDE 0.9% 1,000 ML IV ONE (02:30)
[2021-06-14 03:09] LABS: BASOPHILS % 2.5 % (0.0-2.0); EOSINOPHILS % 8.2 % (0.0-5.0); HEMOGLOBIN. 10.1 g/dL (12.0-16.0); LYMPHOCYTES % 41.4 % (20.0-50.0); MEAN CORPUSCULAR HEMOGLOBIN 25.4 pg (28.0-32.0); MEAN CORPUSCULAR VOLUME 78.1 fL (81.0-99.0); MEAN PLATELET VOLUME 7.9 fl (7.4-10.4); MONOCYTES % 7.7 % (2.0-8.0); NEUTROPHILS % 40.2 % (40.0-76.0); PLATELET 322 x1000/uL (130-400); RED BLOOD CELL COUNT 3.97 mill/uL (4.2-5.4); RED CELL DISTRIBUTION WIDTH 18.7 % (11.6-14.6)
[2021-06-14 03:14] LABS: CHLORIDE 100 mEq/L (98-107)
[2021-06-14 03:17] LABS: INR 0.9; PROTHROMBIN TIME 9.8 sec (9.6-11.0)
[2021-06-14] MEDS ORDERED: KETOROLAC 30MG/ML VIAL IV STA (03:36)
[2021-06-14 04:58] LABS: CLARITY URINE CLEAR (CLEAR); COLOR URINE YELLOW (YELLOW); KETONES URINE NEGATIVE (NEGATIVE); LEUKOCYTE ESTERASE URINE 1+ (NEGATIVE); NITRITE URINE NEGATIVE (NEGATIVE); OCCULT BLOOD URINE NEGATIVE (NEGATIVE); PH URINE 6.5 (4.5-8.0); PROTEIN URINE NEGATIVE (NEGATIVE); SPECIFIC GRAVITY URINE 1.006 (1.005-1.030); UROBILINOGEN URINE 0.2 E.U./dL (0.2-1.0)
[2021-06-14] MEDS ORDERED: DIPHENHYDRAMINE 50MG/ML VIAL IV ONE (05:00)
[2021-06-14] MEDS ORDERED: IBUP-2029 PO (05:57)
[2021-06-14] MEDS ORDERED: ONDA4TAB5 MT (05:57)
[2021-06-14] MEDS ORDERED: HYDR-4001 PO (05:57)
[2021-06-14] MEDS ORDERED: POTA20TA82 PO (06:02)
[2021-06-14 06:16] VITALS: BP 132/44
== END 2021-06-14 06:21 | disposition home or self-care (01) ==
LOC: ER 23:34
DX: M79.601 Pain in right arm (principal); R22.31 Localized swelling, mass and lump, right upper limb; E87.6 Hypokalemia; R11.10 Vomiting, unspecified; R74.8 Abnormal levels of other serum enzymes; K21.9 Gastro-esophageal reflux disease without esophagitis; I10 Essential (primary) hypertension; Z98.890 Other specified postprocedural states
CPT/HCPCS: 36415; 80053; 81003; 83690; 85025; 85610; 96361; 96374; 96375; 99284; J1200; J1885; J2405; J7030

== ENCOUNTER 2021-08-09 11:26 | Emergency (ER) | payer MEDICARE, OTHER ==
[~2021-08-09] VITALS: Ht 167.6 cm; Wt 75.0 kg
[~2021-08-09 11:26] MED LIST changes: +HYDR-4001 PO; +IBUP-2029 PO; +ONDA4TAB5 MT; +POTA20TA82 PO
[2021-08-09 12:36] LABS: BASOPHILS % 0.8 % (0.0-2.0); EOSINOPHILS % 4.1 % (0.0-5.0); HEMATOCRIT. 29.8 % (36.0-48.0); HEMOGLOBIN. 9.6 g/dL (12.0-16.0); LYMPHOCYTES % 19.6 % (20.0-50.0); MEAN CORPUSCULAR VOLUME 80.7 fL (81.0-99.0); MEAN PLATELET VOLUME 8.9 fl (7.4-10.4); MONOCYTES % 6.8 % (2.0-8.0); NEUTROPHILS % 68.7 % (40.0-76.0); PLATELET 219 x1000/uL (130-400); RED BLOOD CELL COUNT 3.69 mill/uL (4.2-5.4); RED CELL DISTRIBUTION WIDTH 18.5 % (11.6-14.6)
[2021-08-09 12:46] LABS: CHLORIDE 100 mEq/L (98-107)
[2021-08-09 14:02] LABS: CLARITY URINE TURBID (CLEAR); COLOR URINE YELLOW (YELLOW); KETONES URINE NEGATIVE (NEGATIVE); LEUKOCYTE ESTERASE URINE 3+ (NEGATIVE); NITRITE URINE NEGATIVE (NEGATIVE); OCCULT BLOOD URINE TRACE (NEGATIVE); PROTEIN URINE NEGATIVE (NEGATIVE); UROBILINOGEN URINE 0.2 E.U./dL (0.2-1.0)
[2021-08-09 14:19] LABS: *AMPHETAMINES SCREEN URINE NEGATIVE (NEGATIVE); *BARBITURATES SCREEN URINE NEGATIVE (NEGATIVE); *BENZODIAZEPINES SCREEN URINE PRESUMTIVE POSITIVE (NEGATIVE); *COCAINE SCREEN URINE NEGATIVE (NEGATIVE); OPIATES URINE SCREEN PRESUMTIVE POSITIVE (NEGATIVE)
[2021-08-09 14:20] LABS: CANNABINOID URINE SCREEN PRESUMTIVE POSITIVE (NEGATIVE); METHADONE URINE SCREEN NEGATIVE (NEGATIVE); PHENCYCLIDINE URINE SCREEN NEGATIVE (NEGATIVE)
[2021-08-09] MEDS ORDERED: MORPHINE SULFATE 2 MG/ML CPJ (NOT FOR IM USE) IV ONE (14:30)
[2021-08-09] MEDS ORDERED: SULFAMETHOXAZOLE/TRIMETHOPRIM 800/160MG TABLET PO ONE (16:00)
[2021-08-09] MEDS ORDERED: DIPHENHYDRAMINE 25MG CAPSULE PO ONE (17:15)
[2021-08-09 17:57] VITALS: BP 105/55
== END 2021-08-09 18:18 | disposition home or self-care (01) ==
LOC: ER 11:26
DX: J98.11 Atelectasis (principal); I10 Essential (primary) hypertension; Z79.899 Other long term (current) drug therapy; Z98.890 Other specified postprocedural states; Z90.49 Acquired absence of other specified parts of digestive tract
CPT/HCPCS: 36415; 71045; 72100; 80053; 80305; 81003; 83880; 84484; 85025; 87086; 93005; 96374; 99285; C1893; J2270

== ENCOUNTER 2022-01-15 08:20 | Emergency (ER) | payer MEDICARE, OTHER ==
[~2022-01-15] VITALS: Ht 162.6 cm; Wt 55.0 kg
[2022-01-15] MEDS ORDERED: TRAMADOL 50MG TABLET PO ONE (09:15)
[2022-01-15 10:54] VITALS: BP 128/74
== END 2022-01-15 10:55 | disposition home or self-care (01) ==
LOC: ER 08:20
DX: M25.562 Pain in left knee (principal); M17.12 Unilateral primary osteoarthritis, left knee; K21.9 Gastro-esophageal reflux disease without esophagitis; I10 Essential (primary) hypertension; Z90.710 Acquired absence of both cervix and uterus; Z98.890 Other specified postprocedural states; Z87.440 Personal history of urinary (tract) infections
CPT/HCPCS: 73562; 99283

== ENCOUNTER 2022-02-08 10:49 | Emergency (ER) | payer MEDICARE, OTHER ==
[~2022-02-08] VITALS: Ht 162.6 cm; Wt 68.0 kg
[2022-02-08] MEDS ORDERED: T3 PO ×3 (11:15→11:34)
[2022-02-08] MEDS ORDERED: ACETAMINOPHEN WITH CODEINE 300/30MG TABLET PO ONE (11:15)
[2022-02-08 11:30] VITALS: BP 128/72
[2022-02-08] MEDS ORDERED: ONDA4TAB5 MT (11:35)
== END 2022-02-08 11:40 | disposition home or self-care (01) ==
LOC: ER 10:49
DX: S89.81XA Other specified injuries of right lower leg, initial encounter (principal); M23.51 Chronic instability of knee, right knee; M25.561 Pain in right knee; G89.29 Other chronic pain; I10 Essential (primary) hypertension; K21.9 Gastro-esophageal reflux disease without esophagitis; Y08.89XA Assault by other specified means, initial encounter; Y93.89 Activity, other specified; Y92.9 Unspecified place or not applicable; Z90.710 Acquired absence of both cervix and uterus; Z98.890 Other specified postprocedural states
CPT/HCPCS: 99283

== ENCOUNTER 2022-02-22 09:43 | Emergency (ER) | payer MEDICARE, OTHER ==
[~2022-02-22] VITALS: Ht 154.9 cm; Wt 63.0 kg
[~2022-02-22 09:43] MED LIST changes: +POTA-205 PO; -POTA20TA82 PO; +T3 PO
[2022-02-22 11:59] LABS: CHLORIDE 102 mEq/L (98-107)
[2022-02-22] MEDS ORDERED: ONDANSETRON HCL 4MG/2ML INJ IV ONE (12:15)
[2022-02-22] MEDS ORDERED: MORPHINE SULFATE 4 MG/ML CPJ (NOT FOR IM USE) IV ONE (12:15)
[2022-02-22] MEDS ORDERED: POTASSIUM CHLORIDE 20MEQ TABLET SR PO NR (12:15)
[2022-02-22] MEDS ORDERED: DIPHENHYDRAMINE 50MG/ML VIAL IV ONE (12:45)
[2022-02-22 14:13] LABS: BASOPHILS % 1.3 % (0.0-2.0); EOSINOPHILS % 5.4 % (0.0-5.0); HEMATOCRIT. 27.2 % (36.0-48.0); HEMOGLOBIN. 8.8 g/dL (12.0-16.0); LYMPHOCYTES % 42.8 % (20.0-50.0); MEAN CORPUSCULAR HEMOGLOBIN 24.4 pg (28.0-32.0); MEAN CORPUSCULAR VOLUME 75.7 fL (81.0-99.0); MEAN PLATELET VOLUME 7.8 fl (7.4-10.4); NEUTROPHILS % 41.5 % (40.0-76.0); PLATELET 288 x1000/uL (130-400); RED CELL DISTRIBUTION WIDTH 16.4 % (11.6-14.6)
[2022-02-22 14:57] LABS: CLARITY URINE CLEAR (CLEAR); COLOR URINE YELLOW (YELLOW); KETONES URINE NEGATIVE (NEGATIVE); LEUKOCYTE ESTERASE URINE NEGATIVE (NEGATIVE); NITRITE URINE NEGATIVE (NEGATIVE); OCCULT BLOOD URINE NEGATIVE (NEGATIVE); PROTEIN URINE NEGATIVE (NEGATIVE); SPECIFIC GRAVITY URINE 1.005 (1.005-1.030); UROBILINOGEN URINE 0.2 E.U./dL (0.2-1.0)
[2022-02-22 15:54] VITALS: BP 112/68
== END 2022-02-22 15:55 | disposition home or self-care (01) ==
LOC: ER 09:43
DX: R51.9 Headache, unspecified (principal); M54.2 Cervicalgia; K21.9 Gastro-esophageal reflux disease without esophagitis; I10 Essential (primary) hypertension; Z87.440 Personal history of urinary (tract) infections; Z90.710 Acquired absence of both cervix and uterus; Z98.890 Other specified postprocedural states
CPT/HCPCS: 36415; 70450; 71045; 72125; 80053; 81003; 84484; 85025; 93005; 96374; 96375; 99285; J1200; J2270; J2405

== ENCOUNTER 2022-03-12 09:02 | Emergency (ER) | payer MEDICARE, OTHER ==
[~2022-03-12] VITALS: Ht 165.1 cm; Wt 78.0 kg
[2022-03-12] MEDS ORDERED: EPINEPHRINE 1:1000 1 MG/ML AMP IM ONE (10:00)
[2022-03-12] MEDS ORDERED: ASPIRIN 81MG TABLET PO ONE (10:00)
[2022-03-12] MEDS ORDERED: FAMOTIDINE 20MG/2ML VIAL IV ONE (10:00)
[2022-03-12] MEDS ORDERED: DIPHENHYDRAMINE 50MG/ML VIAL IV ONE (10:00)
[2022-03-12] MEDS ORDERED: METHYLPREDNISOLONE SOD SUCC 125 MG/2 ML VIAL IV ONE (10:00)
[2022-03-12 10:01] LABS: BASOPHILS % 2.3 % (0.0-2.0); EOSINOPHILS % 3.9 % (0.0-5.0); HEMATOCRIT. 27.2 % (36.0-48.0); HEMOGLOBIN. 8.7 g/dL (12.0-16.0); LYMPHOCYTES % 41.1 % (20.0-50.0); MEAN CORPUSCULAR HEMOGLOBIN 23.8 pg (28.0-32.0); MEAN CORPUSCULAR VOLUME 74.8 fL (81.0-99.0); MEAN PLATELET VOLUME 8.1 fl (7.4-10.4); MONOCYTES % 7.8 % (2.0-8.0); NEUTROPHILS % 44.9 % (40.0-76.0); PLATELET 281 x1000/uL (130-400); RED BLOOD CELL COUNT 3.63 mill/uL (4.2-5.4); RED CELL DISTRIBUTION WIDTH 16.6 % (11.6-14.6)
[2022-03-12 10:10] LABS: CHLORIDE 97 mEq/L (98-107)
[2022-03-12] MEDS ORDERED: ONDANSETRON HCL 4MG/2ML INJ IV ONE (10:15)
[2022-03-12] MEDS ORDERED: KETOROLAC 15MG/ML VIAL IV NR (10:45)
[2022-03-12 11:02] VITALS: BP 136/86
[2022-03-12] MEDS ORDERED: EPIN0.3P3 IM (11:42)
[2022-03-12] MEDS ORDERED: MAGNESIUM/ALUMINUM HYDROXIDE/SIMETHICONE 30ML UDC PO STA (11:47)
[2022-03-12] MEDS ORDERED: VISCOUS LIDOCAINE 2% 15 ML UDC PO STA (11:47)
== END 2022-03-12 11:54 | disposition home or self-care (01) ==
LOC: ER 09:14
DX: T78.40XA Allergy, unspecified, initial encounter (principal); X58.XXXA Exposure to other specified factors, initial encounter; K21.9 Gastro-esophageal reflux disease without esophagitis; I10 Essential (primary) hypertension; Z87.440 Personal history of urinary (tract) infections; Z90.710 Acquired absence of both cervix and uterus; Z91.013 Allergy to seafood; Z98.890 Other specified postprocedural states
CPT/HCPCS: 36415; 71045; 80053; 83690; 84484; 85025; 96372; 96374; 96375; 99284; J1200; J1885; J2405; J2930; J3490

== ENCOUNTER 2022-06-28 04:23 | Emergency (ER) | payer MEDICARE, OTHER ==
[~2022-06-28] VITALS: Ht 162.6 cm; Wt 63.0 kg
[~2022-06-28 04:23] MED LIST changes: +EPIN0.3P3 IM
[2022-06-28] MEDS ORDERED: DIPHENHYDRAMINE 50MG CAPSULE PO ONE (08:15)
[2022-06-28] MEDS ORDERED: DIPH25TA62 PO (08:23)
[2022-06-28 09:17] VITALS: BP 142/86
== END 2022-06-28 09:47 | disposition home or self-care (01) ==
LOC: ER 04:32
DX: L29.9 Pruritus, unspecified (principal); K21.9 Gastro-esophageal reflux disease without esophagitis; I10 Essential (primary) hypertension; Z87.440 Personal history of urinary (tract) infections; Z90.710 Acquired absence of both cervix and uterus; Z91.013 Allergy to seafood; Z98.890 Other specified postprocedural states
CPT/HCPCS: 99282; Q0163

== ENCOUNTER 2022-06-30 00:43 | Emergency (ER) | payer MEDICARE, OTHER ==
[~2022-06-30] VITALS: Ht 162.6 cm; Wt 63.0 kg
[~2022-06-30 00:43] MED LIST changes: +DIPH25TA62 PO
[2022-06-30 01:12] VITALS: BP 175/81
[2022-06-30] MEDS ORDERED: HYDR-3735 PO (06:55)
== END 2022-06-30 07:06 | disposition home or self-care (01) ==
LOC: ER 01:10
DX: L29.9 Pruritus, unspecified (principal); K21.9 Gastro-esophageal reflux disease without esophagitis; I10 Essential (primary) hypertension; Z90.49 Acquired absence of other specified parts of digestive tract; Z90.710 Acquired absence of both cervix and uterus; Z91.013 Allergy to seafood
CPT/HCPCS: 99283

== ENCOUNTER 2022-09-02 01:12 | Emergency (ER) | payer MEDICARE, OTHER ==
[~2022-09-02] VITALS: Ht 162.6 cm; Wt 70.0 kg
[~2022-09-02 01:12] MED LIST changes: +HYDR-3735 PO
[2022-09-02] MEDS ORDERED: FAMOTIDINE 20MG TABLET PO ONE (02:45)
[2022-09-02] MEDS ORDERED: KETOROLAC 30MG/ML VIAL IM ONE (02:45)
[2022-09-02] MEDS ORDERED: ONDANSETRON HCL 4MG/2ML INJ IM ONE (02:45)
[2022-09-02] MEDS ORDERED: FAMO-135 MT (04:55)
[2022-09-02] MEDS ORDERED: ACET-2708 MT (04:55)
[2022-09-02] MEDS ORDERED: FAMOTIDINE 20MG TABLET PO NR (06:15)
[2022-09-02] MEDS ORDERED: KETOROLAC 30MG/ML VIAL IM NR (06:15)
[2022-09-02] MEDS ORDERED: ONDANSETRON HCL 4MG/2ML INJ IM NR (06:15)
[2022-09-02 06:26] LABS: EOSINOPHILS % 5.9 % (0.0-5.0); HEMATOCRIT. 25.6 % (36.0-48.0); HEMOGLOBIN. 8.2 g/dL (12.0-16.0); LYMPHOCYTES % 38.3 % (20.0-50.0); MEAN CORPUSCULAR HEMOGLOBIN 24.1 pg (28.0-32.0); MEAN CORPUSCULAR VOLUME 74.7 fL (81.0-99.0); MEAN PLATELET VOLUME 8.7 fl (7.4-10.4); NEUTROPHILS % 46.8 % (40.0-76.0); PLATELET 270 x1000/uL (130-400); RED BLOOD CELL COUNT 3.42 mill/uL (4.2-5.4); RED CELL DISTRIBUTION WIDTH 17.9 % (11.6-14.6)
[2022-09-02 06:42] LABS: CHLORIDE 105 mEq/L (98-107)
[2022-09-02] MEDS ORDERED: HYDR-3735 MT (07:12)
[2022-09-02] MEDS ORDERED: TRAMADOL 50MG TABLET PO ONE (07:15)
[2022-09-02 07:32] VITALS: BP 126/79
== END 2022-09-02 07:47 | disposition home or self-care (01) ==
LOC: ER 01:29
DX: R19.7 Diarrhea, unspecified (principal); I10 Essential (primary) hypertension; Z79.899 Other long term (current) drug therapy; Z90.49 Acquired absence of other specified parts of digestive tract
CPT/HCPCS: 36415; 76705; 80053; 83690; 85025; 96372; 99284; J1885; J2405

== ENCOUNTER 2022-12-24 01:52 | Emergency (ER) | payer MEDICARE, OTHER ==
[~2022-12-24] VITALS: Ht 157.5 cm; Wt 75.0 kg
[~2022-12-24 01:52] MED LIST changes: +ACET-2708 MT; +FAMO-135 MT; +HYDR-3735 MT
[2022-12-24] MEDS ORDERED: DEXAMETHASONE 10 MG/ML VIAL IM ONE (06:00)
[2022-12-24] MEDS ORDERED: KETOROLAC 60MG/2ML VIAL IM ONE (06:00)
[2022-12-24 06:12] VITALS: BP 130/80
[2022-12-24] MEDS ORDERED: OXYC-100 PO (06:48)
== END 2022-12-24 07:00 | disposition home or self-care (01) ==
LOC: ER 01:52
DX: M17.0 Bilateral primary osteoarthritis of knee (principal); I10 Essential (primary) hypertension; Z79.899 Other long term (current) drug therapy
CPT/HCPCS: 96372; 99284; J1100; J1885

== ENCOUNTER 2023-01-04 11:39 | Emergency (ER) | payer MEDICARE, MEDICAID ==
[~2023-01-04] VITALS: Ht 162.6 cm; Wt 66.0 kg
[~2023-01-04 11:39] MED LIST changes: +OXYC-100 PO
[2023-01-04 12:30] LABS: BASOPHILS % 1.9 % (0.0-2.0); EOSINOPHILS % 4.1 % (0.0-5.0); HEMATOCRIT. 26.5 % (36.0-48.0); HEMOGLOBIN. 8.6 g/dL (12.0-16.0); LYMPHOCYTES % 30.2 % (20.0-50.0); MEAN CORPUSCULAR HEMOGLOBIN 22.4 pg (28.0-32.0); MEAN CORPUSCULAR VOLUME 68.9 fL (81.0-99.0); MEAN PLATELET VOLUME 7.5 fl (7.4-10.4); MONOCYTES % 6.9 % (2.0-8.0); NEUTROPHILS % 56.9 % (40.0-76.0); PLATELET 279 x1000/uL (130-400); RED BLOOD CELL COUNT 3.85 mill/uL (4.2-5.4); RED CELL DISTRIBUTION WIDTH 18.5 % (11.6-14.6)
[2023-01-04] MEDS ORDERED: PANTOPRAZOLE SODIUM 40 MG/VIAL IV STA (12:32)
[2023-01-04] MEDS ORDERED: ONDANSETRON HCL 4MG/2ML INJ IV STA (12:32)
[2023-01-04] MEDS ORDERED: MORPHINE SULFATE 4 MG/ML CPJ (NOT FOR IM USE) IV STA (12:32)
[2023-01-04 12:38] LABS: CHLORIDE 95 mEq/L (98-107)
[2023-01-04 12:40] LABS: INR 0.9; PROTHROMBIN TIME 9.9 sec (9.6-11.0)
[2023-01-04 12:45] LABS: PLATELET ESTIMATE NORMAL
[2023-01-04] MEDS ORDERED: SODIUM CHLORIDE 0.9% 1,000 ML IV ONE (12:45)
[2023-01-04] MEDS ORDERED: CETIRIZINE 10MG TABLET PO SCH (13:30)
[2023-01-04 14:05] VITALS: BP 144/56
[2023-01-04] MEDS ORDERED: DIPHENHYDRAMINE 50MG/ML VIAL IV ONE (14:15)
[2023-01-04 14:50] LABS: CLARITY URINE CLEAR (CLEAR); COLOR URINE YELLOW (YELLOW); KETONES URINE NEGATIVE (NEGATIVE); LEUKOCYTE ESTERASE URINE NEGATIVE (NEGATIVE); NITRITE URINE NEGATIVE (NEGATIVE); OCCULT BLOOD URINE NEGATIVE (NEGATIVE); PROTEIN URINE NEGATIVE (NEGATIVE); SPECIFIC GRAVITY URINE 1.003 (1.005-1.030); UROBILINOGEN URINE 0.2 E.U./dL (0.2-1.0)
[2023-01-04] MEDS ORDERED: SUCR1TAB MT (15:11)
[2023-01-04] MEDS ORDERED: PROT40 MT (15:12)
[2023-01-04] MEDS ORDERED: VISCOUS LIDOCAINE 2% 15 ML UDC MM ONE (15:15)
[2023-01-04] MEDS ORDERED: MAGNESIUM/ALUMINUM HYDROXIDE/SIMETHICONE 30ML UDC PO ONE (15:15)
== END 2023-01-04 15:30 | disposition home or self-care (01) ==
LOC: ER 12:05
DX: K29.70 Gastritis, unspecified, without bleeding (principal); D64.9 Anemia, unspecified; I10 Essential (primary) hypertension
CPT/HCPCS: 36415; 76705; 80053; 81003; 83690; 84478; 85025; 85610; 93005; 96374; 96375; 99285; C9113; J1200; J2270; J2405; J7030

== ENCOUNTER 2023-02-26 13:37 | Emergency (ER) | payer MEDICARE, MEDICAID ==
[~2023-02-26] VITALS: Ht 162.6 cm; Wt 58.0 kg
[~2023-02-26 13:37] MED LIST changes: +PROT40 MT; +SUCR1TAB MT
[2023-02-26 13:42] VITALS: TEMP 98; O2SAT 99
[2023-02-26] MEDS ORDERED: MORPHINE SULFATE 4 MG/ML CPJ (NOT FOR IM USE) IV STA (13:56)
[2023-02-26] MEDS ORDERED: ONDANSETRON HCL 4MG/2ML INJ IV STA (13:56)
[2023-02-26] MEDS ORDERED: SODIUM CHLORIDE 0.9% 1,000 ML IV ONE (14:00)
[2023-02-26 14:42] LABS: BASOPHILS % 2.8 % (0.0-2.0); HEMATOCRIT. 23.5 % (36.0-48.0); HEMOGLOBIN. 7.4 g/dL (12.0-16.0); LYMPHOCYTES % 43.3 % (20.0-50.0); MEAN CORPUSCULAR HEMOGLOBIN 22.5 pg (28.0-32.0); MEAN CORPUSCULAR VOLUME 71.1 fL (81.0-99.0); MONOCYTES % 9.6 % (2.0-8.0); NEUTROPHILS % 36.3 % (40.0-76.0); PLATELET 308 x1000/uL (130-400); RED CELL DISTRIBUTION WIDTH 20.7 % (11.6-14.6)
[2023-02-26 14:50] LABS: CHLORIDE 109 mEq/L (98-107)
[2023-02-26] MEDS ORDERED: DIPHENHYDRAMINE 50MG/ML VIAL IV ONE ×2 (15:30→16:45)
[2023-02-26] MEDS ORDERED: METHYLPREDNISOLONE SOD SUCC 125 MG/2 ML VIAL IV ONE (16:45)
[2023-02-26] MEDS ORDERED: FAMOTIDINE 20MG/2ML VIAL IV ONE (16:45)
[2023-02-26 18:02] VITALS: BP 140/66; PULSE 69; RESP 14
== END 2023-02-26 19:33 | disposition home or self-care (01) ==
LOC: ER 13:37
DX: G89.29 Other chronic pain (principal); M25.552 Pain in left hip; I10 Essential (primary) hypertension; Z79.899 Other long term (current) drug therapy
CPT/HCPCS: 36415; 80053; 83690; 85025; 96361; 96374; 96375; 96376; 99284; J1200; J2270; J2405; J2930; J3490; J7030

== ENCOUNTER 2023-03-30 09:38 | Emergency (ER) | payer MEDICARE, MEDICAID ==
[~2023-03-30] VITALS: Ht 160 cm; Wt 64.0 kg
[2023-03-30 09:46] VITALS: BP 110/52; TEMP 97.9; O2SAT 100
[2023-03-30] MEDS ORDERED: ONDANSETRON HCL 4MG/2ML INJ IV STA (10:14)
[2023-03-30] MEDS ORDERED: MORPHINE SULFATE 4 MG/ML CPJ (NOT FOR IM USE) IV STA (10:14)
[2023-03-30] MEDS ORDERED: SODIUM CHLORIDE 0.9% 1,000 ML IV ONE (10:15)
[2023-03-30 11:02] LABS: BASOPHILS % 2.6 % (0.0-2.0); EOSINOPHILS % 5.3 % (0.0-5.0); HEMATOCRIT. 25.7 % (36.0-48.0); HEMOGLOBIN. 8.3 g/dL (12.0-16.0); LYMPHOCYTES % 35.6 % (20.0-50.0); MEAN CORPUSCULAR HEMOGLOBIN 23.8 pg (28.0-32.0); MEAN CORPUSCULAR VOLUME 73.7 fL (81.0-99.0); MEAN PLATELET VOLUME 9.1 fl (7.4-10.4); NEUTROPHILS % 47.5 % (40.0-76.0); PLATELET 292 x1000/uL (130-400); RED BLOOD CELL COUNT 3.48 mill/uL (4.2-5.4); RED CELL DISTRIBUTION WIDTH 22.6 % (11.6-14.6)
[2023-03-30 11:03] LABS: INR 0.9; PROTHROMBIN TIME 10.2 sec (9.6-11.0)
[2023-03-30 11:11] LABS: CHLORIDE 102 mEq/L (98-107)
[2023-03-30 11:20] LABS: ETHANOL BLOOD < 10 mg/dL (-10)
[2023-03-30 11:28] VITALS: PULSE 61; RESP 16
[2023-03-30 13:38] LABS: PLATELET ESTIMATE NORMAL
== END 2023-03-30 12:20 | disposition left against medical advice (07) ==
LOC: ER 09:38
DX: R10.13 Epigastric pain (principal); R11.2 Nausea with vomiting, unspecified; I10 Essential (primary) hypertension; Z98.51 Tubal ligation status; Z79.899 Other long term (current) drug therapy
CPT/HCPCS: 80053; 80320; 83605; 83690; 85025; 85610; 84484; 36415; 71045; 96361; 96374; 96375; 99284; J2405; J2270; J7030; C1893; G0480

== ENCOUNTER 2023-07-30 02:37 | Emergency (ER) | payer MEDICARE, MEDICAID ==
[~2023-07-30] VITALS: Ht 160 cm; Wt 60.0 kg
[~2023-07-30 02:37] MED LIST changes: -CLON-457 MT; +CLON-493 MT; +TOPUD PO
[2023-07-30 02:41] VITALS: BP 150/80; O2SAT 99
[2023-07-30] MEDS ORDERED: ONDANSETRON HCL 4MG/2ML INJ IV STA (02:49)
[2023-07-30] MEDS ORDERED: SODIUM CHLORIDE 0.9% 1,000 ML IV ONE (03:00)
[2023-07-30] MEDS ORDERED: ACETAMINOPHEN 325MG TABLET PO ONE (03:00)
[2023-07-30] MEDS ORDERED: MAGNESIUM/ALUMINUM HYDROXIDE/SIMETHICONE 30ML UDC PO ONE (03:00)
[2023-07-30 03:19] LABS: BASOPHILS % 0.8 % (0.0-2.0); DIFFERENTIAL COMMENT 0; EOSINOPHILS % 10.7 % (0.0-5.0); HEMATOCRIT. 31.4 % (36.0-48.0); HEMOGLOBIN. 10.3 g/dL (12.0-16.0); LYMPHOCYTES % 29.9 % (20.0-50.0); MEAN CORPUSCULAR HGB CONC 32.7 g/dL (31.0-37.0); MEAN CORPUSCULAR VOLUME 79.5 fL (81.0-99.0); MEAN PLATELET VOLUME 8.7 fl (7.4-10.4); NEUTROPHILS % 51.6 % (40.0-76.0); PLATELET 264 x1000/uL (130-400); RED BLOOD CELL COUNT 3.95 mill/uL (4.2-5.4); RED CELL DISTRIBUTION WIDTH 21.3 % (11.6-14.6); WHITE BLOOD COUNT 5.1 x1000/uL (4.5-11.0)
[2023-07-30 03:28] LABS: CHLORIDE 106 mEq/L (98-107); INDEX HEMOLYSI 1 (1-3); INDEX ICTERIC 1 (1-4); INDEX LIPEMIC 1 (1-3); POTASSIUM 4.2 mEq/L (3.5-5.1); SODIUM 139 mEq/L (136-145)
[2023-07-30 03:35] LABS: ALANINE AMINOTRANSFERASE 13 IU/L (13-61); ALBUMIN 3.6 g/dL (3.4-5.0); ASPARTATE AMINOTRANSFERASE 7 IU/L (15-37); BILIRUBIN TOTAL 0.2 mg/dL (0.1-1.0); CALCIUM 8.8 mg/dL (8.5-10.1); CARBON DIOXIDE 30 mEq/L (21-32); CREATININE 0.6 mg/dL (0.6-1.3); GLUCOSE 103 mg/dL (70-105); INR 0.9; PROTEIN TOTAL 7.2 g/dL (6.0-8.3); PROTHROMBIN TIME 10.1 sec (9.6-11.0); UREA NITROGEN BLOOD 12 mg/dL (7-21)
[2023-07-30] MEDS ORDERED: PANTOPRAZOLE 40MG DR TABLET PO ONE (05:00)
[2023-07-30] MEDS ORDERED: ONDANSETRON 4MG ODT PO ONE (05:00)
[2023-07-30 05:32] LABS: TROPONIN I HIGH SENSITIVITY 6 ng/L (<54)
[2023-07-30] MEDS ORDERED: PROT40 MT (05:44)
[2023-07-30] MEDS ORDERED: T3 PO (05:44)
[2023-07-30] MEDS ORDERED: ONDA4TAB50 MT (05:44)
[2023-07-30 05:57] VITALS: PULSE 90; RESP 16; TEMP 98.2
== END 2023-07-30 05:58 | disposition home or self-care (01) ==
LOC: ER 02:37
DX: K29.50 Unspecified chronic gastritis without bleeding (principal); M25.552 Pain in left hip; G89.29 Other chronic pain; Z00.00 Encounter for general adult medical examination without abnormal findings; I10 Essential (primary) hypertension; Z98.51 Tubal ligation status; Z79.899 Other long term (current) drug therapy
CPT/HCPCS: 99285; 80053; 83605; 83690; 85025; 85610; 84484; 36415; 73502; 93005; Q0162

== ENCOUNTER 2023-12-30 04:18 | Emergency (ER) | payer MEDICARE, OTHER ==
[~2023-12-30] VITALS: Ht 170.2 cm; Wt 61.0 kg
[~2023-12-30 04:18] MED LIST changes: +ONDA4TAB50 MT
[2023-12-30 04:20] VITALS: O2SAT 99
[2023-12-30] MEDS: ACETAMINOPHEN 325MG TABLET PO ONE (05:45)
[2023-12-30] MEDS ORDERED: NAPR-681 PO (06:52)
[2023-12-30] MEDS: KETOROLAC 60MG/2ML VIAL IM ONE (07:07)
[2023-12-30] MEDS: DIPHENHYDRAMINE 25MG CAPSULE PO ONE (07:27)
[2023-12-30] MEDS: ONDANSETRON HCL 4MG TABLET PO ONE (07:27)
[2023-12-30 07:54] VITALS: BP 139/71; PULSE 77; RESP 18; TEMP 98.7
== END 2023-12-30 07:42 | disposition home or self-care (01) ==
LOC: ER 04:27
DX: M25.561 Pain in right knee (principal); I10 Essential (primary) hypertension; Z79.899 Other long term (current) drug therapy; Z98.51 Tubal ligation status; Z90.49 Acquired absence of other specified parts of digestive tract; Z90.89 Acquired absence of other organs
CPT/HCPCS: 99283; 73562; 96372; Q0163; Q0162; J1885

== ENCOUNTER 2024-01-27 00:36 | Emergency (ER) | payer MEDICARE, OTHER ==
[~2024-01-27] VITALS: Ht 165.1 cm; Wt 58.0 kg
[~2024-01-27 00:36] MED LIST changes: +NAPR-681 PO
[2024-01-27 00:54] VITALS: TEMP 98.3; O2SAT 98
[2024-01-27 03:12] LABS: BASOPHILS % 0.6 % (0.0-2.0); EOSINOPHILS % 6.4 % (0.0-5.0); HEMATOCRIT. 27.3 % (36.0-48.0); LYMPHOCYTES % 42.4 % (20.0-50.0); MEAN CORPUSCULAR HEMOGLOBIN 27.1 pg (28.0-32.0); MEAN CORPUSCULAR VOLUME 82.2 fL (81.0-99.0); MONOCYTES % 8.1 % (2.0-8.0); NEUTROPHILS % 42.5 % (40.0-76.0); PLATELET 204 x1000/uL (130-400); RED BLOOD CELL COUNT 3.32 mill/uL (4.2-5.4); RED CELL DISTRIBUTION WIDTH 17.7 % (11.6-14.6); WHITE BLOOD COUNT 4.3 x1000/uL (4.5-11.0)
[2024-01-27 03:19] LABS: CHLORIDE 108 mEq/L (98-107); POTASSIUM 3.9 mEq/L (3.5-5.1); SODIUM 143 mEq/L (136-145)
[2024-01-27 03:20] LABS: CARBON DIOXIDE 30 mEq/L (21-32)
[2024-01-27 03:25] LABS: CREATININE 0.7 mg/dL (0.6-1.0); GLUCOSE 97 mg/dL (70-105)
[2024-01-27 03:26] LABS: UREA NITROGEN BLOOD 14 mg/dL (9-23)
[2024-01-27 03:27] LABS: ALANINE AMINOTRANSFERASE < 7 IU/L (10-49); ASPARTATE AMINOTRANSFERASE 13 IU/L (<34)
[2024-01-27 03:28] LABS: ALBUMIN 3.6 g/dL (3.2-4.8); BILIRUBIN TOTAL < 0.2 mg/dL (0.1-1.0); PROTEIN TOTAL 5.5 g/dL (6.0-8.3)
[2024-01-27] MEDS: MORPHINE SULFATE 4 MG/ML INJ (FOR IV/IM USE) IV ONE (03:30)
[2024-01-27] MEDS: ONDANSETRON HCL 4MG/2ML INJ IV ONE (03:30)
[2024-01-27] MEDS: LACTATED RINGERS 1,000 ML IV SCH (03:35)
[2024-01-27 04:04] LABS: CALCIUM 9.2 mg/dL (8.7-10.4)
[2024-01-27] MEDS: DIPHENHYDRAMINE 50MG/ML VIAL IV ONE (04:12)
[2024-01-27 05:09] VITALS: BP 134/65; PULSE 68; RESP 18
== END 2024-01-27 05:30 | disposition left against medical advice (07) ==
LOC: ER 00:36 → EDBEDREQ 04:41 → EDBEDREQTM 04:41 → ER 05:30 → CANBEDREQ 01-28 21:27
DX: R10.13 Epigastric pain (principal); R11.2 Nausea with vomiting, unspecified; Z79.899 Other long term (current) drug therapy; Z98.51 Tubal ligation status; Z90.49 Acquired absence of other specified parts of digestive tract
CPT/HCPCS: 99285; 74176; 96374; 96375; 80053; 83690; 85025; 36415; J1200; J2405; J2270

== ENCOUNTER 2024-02-22 04:10 | Emergency (ER) | payer MEDICARE, MEDICAID ==
[~2024-02-22] VITALS: Ht 165.1 cm; Wt 55.0 kg
[2024-02-22 04:28] VITALS: O2SAT 100
[2024-02-22 04:55] LABS: BASOPHILS % 1.9 % (0.0-2.0); EOSINOPHILS % 8.6 % (0.0-5.0); HEMATOCRIT. 31.9 % (36.0-48.0); HEMOGLOBIN. 10.5 g/dL (12.0-16.0); LYMPHOCYTES % 31.6 % (20.0-50.0); MEAN CORPUSCULAR HEMOGLOBIN 26.6 pg (28.0-32.0); MEAN CORPUSCULAR HGB CONC 32.8 g/dL (31.0-37.0); MEAN CORPUSCULAR VOLUME 81.3 fL (81.0-99.0); MEAN PLATELET VOLUME 9.8 fl (7.4-10.4); MONOCYTES % 7.4 % (2.0-8.0); NEUTROPHILS % 50.5 % (40.0-76.0); PLATELET 224 x1000/uL (130-400); RED BLOOD CELL COUNT 3.93 mill/uL (4.2-5.4); RED CELL DISTRIBUTION WIDTH 17.2 % (11.6-14.6); WHITE BLOOD COUNT 5.2 x1000/uL (4.5-11.0)
[2024-02-22 05:04] LABS: CARBON DIOXIDE 25 mEq/L (21-32); CHLORIDE 107 mEq/L (98-107); INR 0.9; PROTHROMBIN TIME 10.2 sec (9.6-11.0); SODIUM 139 mEq/L (136-145)
[2024-02-22 05:05] LABS: CALCIUM 9.5 mg/dL (8.7-10.4)
[2024-02-22 05:09] VITALS: BP 129/53; PULSE 72; RESP 16
[2024-02-22 05:09] LABS: CREATININE 0.7 mg/dL (0.6-1.0); GLUCOSE 81 mg/dL (70-105)
[2024-02-22 05:10] LABS: UREA NITROGEN BLOOD 11 mg/dL (9-23)
[2024-02-22 05:11] LABS: ALANINE AMINOTRANSFERASE 8 IU/L (10-49); ALBUMIN 4.6 g/dL (3.2-4.8); ASPARTATE AMINOTRANSFERASE 17 IU/L (<34)
[2024-02-22 05:12] LABS: BILIRUBIN TOTAL < 0.2 mg/dL (0.1-1.0)
[2024-02-22] MEDS: ONDANSETRON HCL 4MG/2ML INJ IV STA (05:13)
[2024-02-22 05:39] LABS: TROPONIN I HIGH SENSITIVITY < 4 ng/L (3.0-34)
[2024-02-22 06:12] VITALS: TEMP 95
[2024-02-22] MEDS: ACETAMINOPHEN 325MG TABLET PO ONE (06:12)
[2024-02-22] MEDS ORDERED: POLY17PO3 PO (07:17)
== END 2024-02-22 07:19 | disposition home or self-care (01) ==
LOC: ER 04:10
DX: R10.9 Unspecified abdominal pain (principal); I10 Essential (primary) hypertension; Z98.51 Tubal ligation status; Z79.899 Other long term (current) drug therapy
CPT/HCPCS: 99285; 74176; 96374; 71045; 80053; 83690; 85025; 85610; 84484; 36415; J2405

== ENCOUNTER 2024-03-27 17:07 | Emergency (ER) | payer MEDICARE, MEDICAID ==
[~2024-03-27] VITALS: Ht 160 cm; Wt 68.0 kg
[~2024-03-27 17:07] MED LIST changes: +POLY17PO3 PO
[2024-03-27 17:11] VITALS: O2SAT 99
[2024-03-27] MEDS: MORPHINE SULFATE 4 MG/ML INJ (FOR IV/IM USE) IV STA (17:58)
[2024-03-27] MEDS: ONDANSETRON HCL 4MG/2ML INJ IV STA (17:58)
[2024-03-27] MEDS: SODIUM CHLORIDE 0.9% 1,000 ML IV ONE (17:58)
[2024-03-27] MEDS: PANTOPRAZOLE SODIUM 40 MG/VIAL IV STA (17:59)
[2024-03-27 18:20] LABS: BASOPHILS % 3.9 % (0.0-2.0); DIFFERENTIAL COMMENT 0; EOSINOPHILS % 8.2 % (0.0-5.0); HEMOGLOBIN. 8.9 g/dL (12.0-16.0); LYMPHOCYTES % 33.6 % (20.0-50.0); MEAN CORPUSCULAR HEMOGLOBIN 25.4 pg (28.0-32.0); MEAN CORPUSCULAR HGB CONC 31.7 g/dL (31.0-37.0); MEAN CORPUSCULAR VOLUME 79.9 fL (81.0-99.0); MEAN PLATELET VOLUME 9.9 fl (7.4-10.4); MONOCYTES % 8.5 % (2.0-8.0); NEUTROPHILS % 45.8 % (40.0-76.0); PLATELET 215 x1000/uL (130-400); RED BLOOD CELL COUNT 3.51 mill/uL (4.2-5.4); RED CELL DISTRIBUTION WIDTH 16.5 % (11.6-14.6); WHITE BLOOD COUNT 4.4 x1000/uL (4.5-11.0)
[2024-03-27 18:25] LABS: CHLORIDE 105 mEq/L (98-107); POTASSIUM 4.2 mEq/L (3.5-5.1); SODIUM 138 mEq/L (136-145)
[2024-03-27 18:26] LABS: CALCIUM 8.7 mg/dL (8.7-10.4); CARBON DIOXIDE 31 mEq/L (21-32)
[2024-03-27] MEDS: DIPHENHYDRAMINE 50MG/ML VIAL IV NR (18:26)
[2024-03-27 18:31] LABS: CREATININE 0.7 mg/dL (0.6-1.0); GLUCOSE 100 mg/dL (70-105); TRIGLYCERIDE 66 mg/dL (0-150); UREA NITROGEN BLOOD 8 mg/dL (9-23)
[2024-03-27 18:32] LABS: INR 0.9; PROTHROMBIN TIME 10.5 sec (9.6-11.0); TROPONIN I HIGH SENSITIVITY 4 ng/L (3.0-34)
[2024-03-27 18:33] LABS: ALANINE AMINOTRANSFERASE 11 IU/L (10-49); ALBUMIN 3.8 g/dL (3.2-4.8); ASPARTATE AMINOTRANSFERASE 16 IU/L (<34); BILIRUBIN TOTAL 0.2 mg/dL (0.1-1.0)
[2024-03-27 18:37] LABS: BILIRUBIN DIRECT < 0.1 mg/dL (<=3.0)
[2024-03-27 21:29] LABS: CLARITY URINE CLEAR (CLEAR); COLOR URINE YELLOW (YELLOW); GLUCOSE URINE NEGATIVE (NEGATIVE); KETONES URINE NEGATIVE (NEGATIVE); LEUKOCYTE ESTERASE URINE NEGATIVE (NEGATIVE); NITRITE URINE NEGATIVE (NEGATIVE); OCCULT BLOOD URINE NEGATIVE (NEGATIVE); PH URINE 7.5 (4.5-8.0); PROTEIN URINE NEGATIVE (NEGATIVE); SPECIFIC GRAVITY URINE 1.004 (1.005-1.030); UROBILINOGEN URINE 0.2 E.U./dL (0.2-1.0)
[2024-03-27 23:36] VITALS: BP 136/71; PULSE 60; RESP 15; TEMP 98.4
== END 2024-03-27 23:39 | disposition home or self-care (01) ==
LOC: ER 17:07
DX: R10.13 Epigastric pain (principal); I10 Essential (primary) hypertension; Z98.51 Tubal ligation status; Z90.49 Acquired absence of other specified parts of digestive tract; Z79.899 Other long term (current) drug therapy
CPT/HCPCS: 99285; 96374; 96375; 76705; 96361; 84478; 80076; 80048; 81003; 83690; 85025; 85610; 86850; 86900; 86901; 84484; 36415; 93005; J1200; J2405; J2270; J7030

== ENCOUNTER 2024-04-23 21:22 | Emergency (ER) | payer MEDICARE, MEDICAID ==
[~2024-04-23] VITALS: Ht 162.6 cm; Wt 60.0 kg
[2024-04-23 21:31] VITALS: O2SAT 100
[2024-04-23 22:52] LABS: BASOPHILS % 0.9 % (0.0-2.0); DIFFERENTIAL COMMENT 0; EOSINOPHILS % 5.5 % (0.0-5.0); HEMATOCRIT. 24.9 % (36.0-48.0); HEMOGLOBIN. 8.1 g/dL (12.0-16.0); LYMPHOCYTES % 27.4 % (20.0-50.0); MEAN CORPUSCULAR HEMOGLOBIN 24.9 pg (28.0-32.0); MEAN CORPUSCULAR HGB CONC 32.5 g/dL (31.0-37.0); MEAN CORPUSCULAR VOLUME 76.7 fL (81.0-99.0); MEAN PLATELET VOLUME 9.6 fl (7.4-10.4); MONOCYTES % 8.7 % (2.0-8.0); NEUTROPHILS % 57.5 % (40.0-76.0); PLATELET 224 x1000/uL (130-400); RED BLOOD CELL COUNT 3.25 mill/uL (4.2-5.4); RED CELL DISTRIBUTION WIDTH 16.7 % (11.6-14.6); WHITE BLOOD COUNT 5.1 x1000/uL (4.5-11.0)
[2024-04-23] MEDS: FAMOTIDINE 20MG/2ML VIAL IV STA (22:55)
[2024-04-23] MEDS: MORPHINE SULFATE 4 MG/ML INJ (FOR IV/IM USE) IV STA (22:55)
[2024-04-23] MEDS: ONDANSETRON HCL 4MG/2ML INJ IV STA (22:55)
[2024-04-23 22:58] LABS: CHLORIDE 105 mEq/L (98-107); SODIUM 140 mEq/L (136-145)
[2024-04-23 22:59] LABS: CALCIUM 8.6 mg/dL (8.7-10.4); CARBON DIOXIDE 27 mEq/L (21-32)
[2024-04-23 23:04] LABS: CREATININE 0.7 mg/dL (0.6-1.0); GLUCOSE 106 mg/dL (70-105); TROPONIN I HIGH SENSITIVITY 4 ng/L (3.0-34)
[2024-04-23 23:05] LABS: UREA NITROGEN BLOOD 10 mg/dL (9-23)
[2024-04-23 23:06] LABS: ALANINE AMINOTRANSFERASE 8 IU/L (10-49); ALBUMIN 3.6 g/dL (3.2-4.8); ASPARTATE AMINOTRANSFERASE 13 IU/L (<34)
[2024-04-23 23:07] LABS: BILIRUBIN DIRECT < 0.1 mg/dL (<=3.0); BILIRUBIN TOTAL < 0.2 mg/dL (0.1-1.0); PROTEIN TOTAL 5.8 g/dL (6.0-8.3)
[2024-04-23 23:20] LABS: PROTHROMBIN TIME 10.8 sec (9.6-11.0)
[2024-04-23] MEDS: DIPHENHYDRAMINE 50MG/ML VIAL IV ONE (23:31)
[2024-04-23] MEDS: METHYLPREDNISOLONE SOD SUCC 125MG/2ML (ACT-O-VIAL) IV ONE (23:32)
[2024-04-24] MEDS: POTASSIUM CHLORIDE 20MEQ/PACKET PO NR (01:36)
[2024-04-24] MEDS ORDERED: FAMO-134 MT (03:11)
[2024-04-24] MEDS ORDERED: B50 MT (03:11)
[2024-04-24] MEDS ORDERED: P20 MT (03:11)
[2024-04-24 03:28] VITALS: BP 145/56; PULSE 76; RESP 19
[2024-04-24 04:13] VITALS: TEMP 98.2
[2024-04-24] MEDS: ACETAMINOPHEN 325MG TABLET PO ONE (04:13)
== END 2024-04-24 04:24 | disposition home or self-care (01) ==
LOC: ER 21:25
DX: R10.9 Unspecified abdominal pain (principal); Z98.51 Tubal ligation status; Z90.49 Acquired absence of other specified parts of digestive tract; Z79.899 Other long term (current) drug therapy
CPT/HCPCS: 99291; 96374; 96375; 80076; 80048; 83690; 85025; 85610; 84484; 36415; 71045; 93005; J1200; J3490; J2919; J2405; J2270

== ENCOUNTER 2024-06-27 00:01 | Emergency (ER) | payer MEDICARE, MEDICAID ==
[~2024-06-27] VITALS: Ht 167.6 cm; Wt 50.0 kg
[~2024-06-27 00:01] MED LIST changes: +B50 MT; +FAMO-134 MT; +IMIP50TA; -IMIP50TA7; +P20 MT
[2024-06-27 00:08] VITALS: O2SAT 98
[2024-06-27] MEDS: ACETAMINOPHEN 325MG TABLET PO ONE (00:35)
[2024-06-27] MEDS: KETOROLAC 15MG/ML VIAL IM ONE (01:01)
[2024-06-27] MEDS ORDERED: ONDANSETRON HCL 4MG TABLET PO ONE (01:30)
[2024-06-27] MEDS: ONDANSETRON HCL 4MG TABLET PO NR (01:45)
[2024-06-27] MEDS: MORPHINE SULFATE 4 MG/ML INJ (FOR IV/IM USE) IM ONE (02:38)
[2024-06-27] MEDS ORDERED: NAPR-1176 MT (03:01)
[2024-06-27] MEDS: DIPHENHYDRAMINE 12.5MG/5ML UDC PO ONE (03:10)
[2024-06-27 03:25] VITALS: BP 127/74; PULSE 71; RESP 20; TEMP 36.78072; O2SAT 100
== END 2024-06-27 03:25 | disposition home or self-care (01) ==
LOC: ER 00:01
DX: G89.29 Other chronic pain (principal); M79.605 Pain in left leg; I10 Essential (primary) hypertension; Z98.51 Tubal ligation status; Z90.89 Acquired absence of other organs; Z90.49 Acquired absence of other specified parts of digestive tract; Z79.899 Other long term (current) drug therapy; Z88.5 Allergy status to narcotic agent
CPT/HCPCS: 99285; 96372; Q0162; Q0163; J1885; J2270

== ENCOUNTER 2024-07-08 12:22 | Emergency (ER) | payer MEDICARE, MEDICAID ==
[~2024-07-08] VITALS: Ht 162.6 cm; Wt 68.0 kg
[~2024-07-08 12:22] MED LIST changes: -ACET-2708 MT; -B50 MT; -DIPH25TA62 PO; -EPIN0.3P3 IM; -ESOM20CA; -FAMO-134 MT; -FAMO-135 MT; -FERR325T6 MT; -HYDR-3735 MT; -HYDR-3735 PO; -HYDR-4001 PO; -HYDR-4346 PO; -IBUP-2029 PO; -IMIP50TA; -LANS30CA52; -MECL25TA3; -METO5TAB86; -NAPR-681 PO; -ONDA4TAB5 MT; -ONDA4TAB5 PO; -ONDA4TAB50 MT; -OXYC-100 PO; -P20 MT; -POLY17PO3 PO; -POTA-205 PO; -PROT20 MT; -SERT25TA; -SUCR1TAB MT; -T3 PO; -TOPUD PO; -XANAX
[2024-07-08 12:24] VITALS: BP 134/54; PULSE 68; RESP 18; TEMP 98; O2SAT 99
[2024-07-08] MEDS: ONDANSETRON HCL 4MG TABLET PO ONE (13:30)
[2024-07-08 13:52] LABS: DIFFERENTIAL COMMENT 0; HEMATOCRIT. 28.4 % (36.0-48.0); HEMOGLOBIN. 8.9 g/dL (12.0-16.0); LYMPHOCYTES % 26.4 % (20.0-50.0); MEAN CORPUSCULAR HEMOGLOBIN 23.3 pg (28.0-32.0); MEAN CORPUSCULAR HGB CONC 31.2 g/dL (31.0-37.0); MEAN CORPUSCULAR VOLUME 74.7 fL (81.0-99.0); MEAN PLATELET VOLUME 7.9 fl (7.4-10.4); MONOCYTES % 7.2 % (2.0-8.0); NEUTROPHILS % 61.4 % (40.0-76.0); PLATELET 269 x1000/uL (130-400); WHITE BLOOD COUNT 5.1 x1000/uL (4.5-11.0)
[2024-07-08 14:05] LABS: CHLORIDE 102 mEq/L (98-107); POTASSIUM 4.6 mEq/L (3.5-5.1); SODIUM 133 mEq/L (136-145)
[2024-07-08 14:06] LABS: CALCIUM 9.2 mg/dL (8.7-10.4); CARBON DIOXIDE 27 mEq/L (21-32)
[2024-07-08 14:11] LABS: CREATININE 0.8 mg/dL (0.6-1.0); GLUCOSE 100 mg/dL (70-105); UREA NITROGEN BLOOD 7 mg/dL (9-23)
[2024-07-08 14:13] LABS: ALANINE AMINOTRANSFERASE < 7 IU/L (10-49); ASPARTATE AMINOTRANSFERASE 10 IU/L (<34); BILIRUBIN TOTAL < 0.2 mg/dL (0.1-1.0); PROTEIN TOTAL 6.9 g/dL (6.0-8.3)
[2024-07-08 14:20] LABS: BILIRUBIN DIRECT < 0.1 mg/dL (<=3.0)
== END 2024-07-08 16:00 | disposition left against medical advice (07) ==
LOC: ER 13:21
DX: R10.9 Unspecified abdominal pain (principal); Z53.21 Procedure and treatment not carried out due to patient leaving prior to being seen by health care provider
CPT/HCPCS: 36415; 80048; 80076; 85025; 83690; Q0162; 99283

== ENCOUNTER 2025-06-29 17:35 | Emergency (ER) | payer MEDICARE, MEDICAID ==
[~2025-06-29] VITALS: Ht 162.6 cm; Wt 50.0 kg
[~2025-06-29 17:35] MED LIST changes: +AMLO-905; -AMLO10TA4; +ATOR-2 PO; +CELE-146 PO; +CHOL100046 PO; +DICL75TA5 PO; +FOLI-43 PO; +HYDR-4001 MT; +LOSA100T33 PO; +POTA-205 PO; +SERT-112 PO
[2025-06-29 17:38] VITALS: TEMP 36.4; O2SAT 100
[2025-06-29] MEDS: MORPHINE SULFATE 4 MG/ML INJ (FOR IV/IM USE) IM ONE (18:31)
[2025-06-29] MEDS: TRAMADOL 50MG TABLET PO ONE (18:32)
[2025-06-29] MEDS: DIPHENHYDRAMINE 25MG CAPSULE PO ONE (19:33)
[2025-06-29] MEDS: DIPHENHYDRAMINE 50MG/ML VIAL IM ONE (19:55)
[2025-06-29 20:06] VITALS: BP 159/60; PULSE 61; RESP 16; O2SAT 99
[2025-06-30] MEDS ORDERED: ACET-3800 MT (19:30)
== END 2025-06-29 20:07 | disposition home or self-care (01) ==
LOC: ER 17:35
DX: M17.12 Unilateral primary osteoarthritis, left knee (principal); I10 Essential (primary) hypertension; E78.00 Pure hypercholesterolemia, unspecified; Z79.899 Other long term (current) drug therapy
CPT/HCPCS: 99284; 73562; 96372; Q0163; J1200; J2270

== ENCOUNTER 2025-06-30 17:42 | Emergency (ER) | payer MEDICARE, MEDICAID ==
[~2025-06-30] VITALS: Ht 160 cm; Wt 55.0 kg
[2025-06-30 17:44] VITALS: TEMP 37.2; O2SAT 99
[2025-06-30] MEDS: KETOROLAC 30MG/ML VIAL IM ONE (18:35)
[2025-06-30] MEDS: TRAMADOL 50MG TABLET PO ONE (18:36)
[2025-06-30] MEDS: DIPHENHYDRAMINE 50MG/ML VIAL IM ONE (19:09)
[2025-06-30 19:12] VITALS: BP 143/61; PULSE 72; RESP 18; O2SAT 98
[2025-06-30] MEDS ORDERED: ACET-3800 MT (19:30)
== END 2025-06-30 19:31 | disposition left against medical advice (07) ==
LOC: ER 17:42
DX: M79.605 Pain in left leg (principal); I10 Essential (primary) hypertension; E78.00 Pure hypercholesterolemia, unspecified; Z79.899 Other long term (current) drug therapy
CPT/HCPCS: 99283; 96372; J1200; J1885

== ENCOUNTER 2025-07-25 20:58 | Emergency (ER) | payer MEDICARE, MEDICAID ==
[~2025-07-25] VITALS: Ht 165.1 cm; Wt 62.0 kg
[~2025-07-25 20:58] MED LIST changes: +ACET-3800 MT
[2025-07-25 21:06] VITALS: O2SAT 98
[2025-07-25] MEDS: MORPHINE SULFATE 4 MG/ML INJ (FOR IV/IM USE) IM ONE (23:53)
[2025-07-26] MEDS: DIPHENHYDRAMINE 50MG/ML VIAL IM ONE (00:15)
[2025-07-26] MEDS ORDERED: METO10TA3 MT (00:42)
[2025-07-26] MEDS ORDERED: HYDR-4001 MT (00:42)
[2025-07-26 01:35] VITALS: BP 145/69; PULSE 63; RESP 16; TEMP 36.5; O2SAT 100
== END 2025-07-26 01:40 | disposition home or self-care (01) ==
LOC: ER 20:58
DX: G89.29 Other chronic pain (principal); M25.562 Pain in left knee; M19.90 Unspecified osteoarthritis, unspecified site; Z79.1 Long term (current) use of non-steroidal anti-inflammatories (NSAID); Z88.5 Allergy status to narcotic agent; Z79.899 Other long term (current) drug therapy
CPT/HCPCS: 99284; 96372 ×2; J2270; J1200